=== PATIENT | female | born 1990 | race Caucasian/White ===

== ENCOUNTER → 2023-08-14 | Outpatient (CLI) | payer MEDICAID, SELFPAY ==
--- OUTSIDE RECORDS SUMMARY | 2023-08-14 16:31 | XMS RPT_ITS | CCD ---
Author Name Unknown Address [address] [place] [address] Organization [facility] Care Team Providers Care Flexo Press Operator Name Role Phone Irvin Hussein Primary Care Provider Blanca Cerna Admitting Unavailable [place] Attending Unavailable Bl[place] Cerna Primary Care Provider [place] Primary Care Provider [phone] [place] TIRADO Primary Care Provider [place] TIRADO Primary Care Provider HINESTONBLANCA Primary Care Unavailable JACLYN CUMMINGS Referring Unavail able JACLYN CUMMINGS Admitting Unavail able JACLYN CUMMINGS Admitting Unavail able JACLYN CUMMINGS Attending Unavail able BLANCA CERNA Primary Care Unavailable [place] TIRADO Primary Care Provider Mars Lane Unavailable Unavailable Unavailable No, Physician Primary Care Provider Unavailabl e Required, No Pcp Unavailable Unavailable Peter Pritchard Unavailable Unavailable Mars Lane R Unavailable None, No PCP Unavailable Unavailable Mars Lane Attending Unavailable Mars Lane Primary Care Unavailable Dr. Trisha Pruett Admitting Unav ailable Flynn, Dr. Trisha Cook Attending Unav ailable Mars Lane Referring Unavailable Mars Lane Primary Care Unavailable Dr. Trisha Pruett Admitting Unav ailable Flynn, Dr. Trisha Cook Attending Unav ailMars Walker Referring Unavailable Mars Lane Primary Care Unavailable Mars Lane Primary Care Unavailable Mars Lane Attending Unavailable Mars Lane Referring Unavailable Mars Lane Attending Unavailable Mars Lane Referring Unavailable DANNA SOLIS Admitting Unavailable DANNA SOLIS Attending Unavailable DANNA SOLIS Referring Unavailable Mars Lane Primary Care Unavailable Mars Lane Attending Unavailable NO, PHYSICIAN Primary Care Unavailable PATTIE CAZARES Attending Unavailable PATTIE CAZARES Attending Unavailable NO, PHYSICIAN Primary Care Unavailable PATTIE CAZARES Attending Unavailable NO, PHYSICIAN Primary Care Unavailable NO, PHYSICIAN Primary Care Unavailable MOSES ALMONTE Attending Unava ilable Allergies Allergy Classification Reported Allergen(s) Allergy Type Date of Onset Reaction(s) Facility Penicillins (antibiotic) (9 sources) Penicillins; Translations: [PENICILLINS] Drug Allergy 8 Other (See Comments) [facility] (9 sources) Penicillins; Translations: [PENICILLINS] Propensity to adverse reactions to drug 8 Other (See Comments) [facility] (20 sources) Other; Translations: [OTHER] Propensity to adverse reactions 8 [facility] (8 sources) Penicillins; Translations: [Penicillins] Allergy to drug (finding) Unknown [facility] [address] [employer] Work Phone: (2 sources) Penicillins Propensity to adverse reactions to drug 8 Other (See Comments) [facility] (2 sources) Penicillins Propensity to adverse reactions to drug 8 Other (See Comments) [facility] Medications Current Medications Medication Drug Class(es) Dates Sig (Normalized) Sig (Original) doxycycline hyclate 100 mg oral tablet (6 sources) Tetracycline-cla ss Drug Start: 08-19-2022 End: 08-28-2022 take 1 tablet by mouth twice daily doxycycline hyclate 100 mg oral tablet ; 1 tab(s) orally 2 times a day Quantity: 20 Refills: 0 Ordered: 19-Aug-2022 Peter Pritchard Start: 19-Aug-2022 End: 28-Aug-2022 Generic Substitution Allowed Comments: Avoid prolonged or excessive exposure to direct and/or artificial sunlight while taking this medication.Do not take this drug if you are .Finish all this medication unless otherwise directed by prescriber.Medicati on should be taken with plenty of water. Completed/Discontinued Medications Medication Drug Class(es) Dates Sig (Normalized) Sig (Original) acyclovir 400 mg oral tablet (12 sources) Herpesvirus Nucleoside Analog DNA Polymerase Inhibitor, Herpes Simplex Virus Nucleoside Analog DNA Polymerase Inhibitor, Herpes Zoster Virus Nucleoside Analog DNA Polymerase Inhibitor Start: 06-23-2018 End: 05-21-2020 take 1 tablet by mouth twice daily acyclovir (ZOVIRAX) 400 MG tablet Take 400 mg by mouth 2 (two) times a day . 0 06/23/2018 05/21/2020 Discontinued fluticasone propionate 0.05 mg/actuat metered dose nasal spray (3 sources) Corticosteroid Start: 08-17-2018 End: 08-17-2019 take 2 spray(s) nasal route once daily Levora 0.15/30 (28) 0.15-30 MG-MCG Oral Tablet (6 sources) take 1 tablet by mouth once daily Levora 0.15/30 (28) 0.15-30 MG-MCG Oral Tablet take 1 tablet by mouth once daily Quantity: 1 Refills: 12 Ordered: 26-Aug-[address] MD Active Problems Active Problems Problem Classification Problem Date Documented Da te Episodic/Chronic Cancer of cervix (12 sources) Atypical squamous cells of undetermined significance on cervical Papanicolaou smear; Translations: [Papanicolaou smear of cervix with atypical squamous cells of undetermined significance (ASC-US)] Onset: 03-11-2022 Episodic Open wounds of extremities (2 sources) Laceration without foreign body of right hand, initial encounter; Translations: [Laceration without foreign body of right hand, initial encounter] Onset: 06-04-2023 Episodic Other aftercare (1 source) Surgical follow-up; Translations: [Encounter for follow-up examination after completed treatment for conditions other than malignant neoplasm] Episodic Other connective tissue disease (1 source) Pain of bilateral hands; Translations: [Pain in right hand] Episodic Other connective tissue disease (2 sources) Acquired trigger finger; Translations: [Trigger finger, unspecified finger] Episodic Other connective tissue disease (1 source) Snapping thumb syndrome; Translations: [Trigger thumb, unspecified thumb] Episodic Other connective tissue disease (1 source) Trigger thumb of right hand; Translations: [Trigger thumb, right thumb] 03-18-2023 Episodic Other connective tissue disease (2 sources) Pain in unspecified hand; Translations: [Pain in unspecified hand] Onset: 06-04-2023 Episodic Other lower respiratory disease (2 sources) Cough 08-19-2022 Episodic Past or Other Problems Problem Classification Problem Date Documented Date Episodic/Chronic Administrative/social admission (1 source) Other specified counseling; Translations: [Other specified counseling] Onset: 05-06-2022 Episodic Allergic reactions (20 sources) Environmental allergy; Translations: [Other allergy status, other than to drugs and biological substances] Onset: 07-27-1998 08-17-2018 Episodic Conditions associated with dizziness or vertigo (20 sources) Dizziness and giddiness; Translations: [Dizziness of unknown cause] Onset: 08-17-2018 Resolved: 05-21-2020 08-17-2018 Episodic Other connective tissue disease (3 sources) Triggering of digit; Translations: [Trigger finger, left middle finger] Onset: 08-05-2022 Episodic Other connective tissue disease (1 source) Trigger finger, left middle finger; Translations: [Trigger finger, left middle finger] Onset: 08-05-2022 Episodic Other connective tissue disease (2 sources) Trigger thumb, unspecified thumb; Translations: [Trigger thumb, unspecified thumb] Onset: 08-05-2022 Episodic Other female genital disorders (3 sources) Moderate cervical dysplasia; Translations: [Moderate cervical dysplasia] Onset: 06-09-2022 Episodic Other female genital disorders (1 source) Dysplasia of cervix uteri, unspecified; Translations: [Dysplasia of cervix uteri, unspecified] Onset: 06-09-2022 Episodic Other nervous system disorders (16 sources) Numbness of hand; Translations: [Anesthesia of skin] Onset: 05-21-2020 05-21-2020 Episodic Other non-traumatic joint disorders (11 sources) Bilateral wrist pain; Translations: [Pain in right wrist] Onset: 05-21-2020 05-21-2020 Episodic Other nutritional; endocrine; and metabolic disorders (9 sources) Body mass index 25-29 - overweight; Translations: [Body mass index (BMI) 28.0-28.9, adult] Onset: 08-17-2018 08-17-2018 Episodic Other nutritional; endocrine; and metabolic disorders (2 sources) Overweight in adulthood with body mass index of 25 or more but less than 30; Translations: [Body mass index (BMI) 28.0-28.9, adult] Onset: 08-17-2018 08-17-2018 Episodic Other upper respiratory infections (18 sources) Acute maxillary sinusitis; Translations: [Acute frontal sinusitis] Onset: 09-03-2018 Resolved: 05-21-2020 09-03-2018 Episodic Otitis media and related conditions (14 sources) Acute serous otitis media, bilateral; Translations: [Acute serous otitis media of bilateral ears] Onset: 08-17-2018 Resolved: 05-21-2020 08-17-2018 Episodic Otitis media and related conditions (5 sources) Acute serous otitis media of bilateral ears; Translations: [Bilateral acute serous otitis media] Onset: 08-17-2018 Resolved: 05-21-2020 08-17-2018 Unclassified (6 sources) Finding of menstrual bleeding; Translations: [Menstruation] Results Test Name Value Interpretation Reference Range Facil ity Vital Signs Date Time Vital Sign Value Performing Clinician Facility 03-25-2023 17:45-0400 Body height 152.4 cm No Pcp Required [facility] 03-25-2023 17:45-0400 Body temperature 100.22 [degF] No Pcp Required [facility] 03-25-2023 17:45-0400 Diastolic blood pressure 84 mm[Hg] No Pcp Required [facility] 03-25-2023 17:45-0400 Heart rate 111 /min No Pcp Required [facility] 03-25-2023 17:45-0400 Respiratory rate 16 /min No Pcp Required [facility] 03-25-2023 17:45-0400 SaO2% (BldA) [Mass fraction] 97 % No Pcp Required [facility] 03-25-2023 17:45-0400 Systolic blood pressure 125 mm[Hg] No Pcp Required [facility] 08-26-2022 08:31-0500 Body height 149.86 cm No PCP None [employer] Work Phone: 08-26-2022 08:31-0500 Body mass index (BMI) [Ratio] 27.96 kg/m2 No PCP None [employer] Work Phone: 08-26-2022 08:31-0500 Body surface area Derived from formula 1.58 m2 No PCP None [employer] Work Phone: 08-26-2022 08:31-0500 Body weight 62.8 kg No PCP None [facility] Taisha Ackley Work Phone: 08-26-2022 08:31-0500 Diastolic blood pressure 64 mm[Hg] No PCP None [facility] Taisha Ackley Work Phone: 08-26-2022 08:31-0500 Systolic blood pressure 118 mm[Hg] No PCP None [facility] Taisha Ackley Work Phone: 08-19-2022 12:07-0500 Body height 152 cm No Pcp Required [facility] 08-19-2022 12:07-0500 Body temperature 98.24 [degF] No Pcp Required [facility] 08-19-2022 12:07-0500 Diastolic blood pressure 101 mm[Hg] No Pcp Required [facility] 08-19-2022 12:07-0500 Heart rate 93 /min No Pcp Required [facility] 08-19-2022 12:07-0500 SaO2% (BldA) [Mass fraction] 97 % No Pcp Required [facility] 08-19-2022 12:07-0500 Systolic blood pressure 135 mm[Hg] No Pcp Required [facility] 09-06-2021 08:54-0500 Body height [address] Work Phone: [place] [id number] [employer] Work Phone: 09-06-2021 08:54-0500 Body mass index (BMI) [Ratio] 27.3 kg/m2 [address] Work Phone: [place] [id number] [employer] Work Phone: 09-06-2021 08:54-0500 Body surface area Derived from formula 1.[address] Work Phone: [place] [id number] [employer] Work Phone: 09-06-2021 08:54-0500 Body temperature 97.7 [degF] [address] Work Phone: [place] [id number] [employer] Work Phone: 09-06-2021 08:54-0500 Body weight 61.[address] Work Phone: [place] [id number] [employer] Work Phone: 09-06-2021 08:54-0500 Diastolic blood pressure 68 mm[Hg] [address] Work Phone: [place] [id number] [employer] Work Phone: 09-06-2021 08:54-0500 Systolic blood pressure 122 mm[Hg] Mars [address] Work Phone: [place] [id number] [employer] Work Phone: 08-23-2021 08:43-0500 Body height [address] Work Phone: [place] [id number] [employer] Work Phone: 08-23-2021 08:43-0500 Body mass index (BMI) [Ratio] 27.43 kg/m2 [address] Work Phone: [place] [id number] [employer] Work Phone: 08-23-2021 08:43-0500 Body surface area Derived from formula 1.[address] Work Phone: [place] [address] [employer] Work Phone: 08-23-2021 08:43-0500 Body temperature 97.3 [degF] [address] Work Phone: [place] [id number] [employer] Work Phone: 08-23-2021 08:43-0500 Body weight [address] Work Phone: [place] [address] [employer] Work Phone: 08-23-2021 08:43-0500 Diastolic blood pressure 64 mm[Hg] [address] Work Phone: [employer] Work Phone: 08-23-2021 08:43-0500 Systolic blood pressure 112 mm[Hg] [address] Work Phone: [employer] Work Phone: 06-06-2020 07:57-0500 BMI (Body Mass Index) 27.27 kg/m2 [facility] 06-06-2020 07:57-0500 Body weight 61.24 kg Jaclyn [facility] 06-06-2020 07:57-0500 Height 149.9 cm [facility] 05-21-2020 08:24-0400 BMI (Body Mass Index) 27.29 kg/m2 [facility] 05-21-2020 08:24-0400 Body Temperature 99.39 [degF] [facility] 05-21-2020 08:24-0400 Body weight 61.28 kg [facility] 05-21-2020 08:24-0400 BP Diastolic 79 mm[Hg] [facility] 05-21-2020 08:24-0400 BP Systolic 120 mm[Hg] [facility] 05-21-2020 08:24-0400 Height 149.9 cm [facility] 05-21-2020 08:24-0400 Pulse (Heart Rate) 83 /min [facility] 05-21-2020 08:24-0400 Pulse Oximetry 99 % [facility] 05-21-2020 08:24-0400 Respiratory Rate 16 /min [facility] 09-27-2019 15:43-0500 BMI (Body Mass Index) 26.86 kg/m2 [facility] 09-27-2019 15:43-0500 Body Temperature 98.29 [degF] [facility] 09-27-2019 15:43-0500 Body weight 60.33 kg [facility] 09-27-2019 15:43-0500 BP Diastolic 72 mm[Hg] [facility] 09-27-2019 15:43-0500 BP Systolic 122 mm[Hg] [facility] 09-27-2019 15:43-0500 Height 149.9 cm [facility] 09-27-2019 15:43-0500 Pulse (Heart Rate) 92 /min [facility] 09-27-2019 15:43-0500 Pulse Oximetry 98 % [facility] 09-27-2019 15:43-0500 Respiratory Rate 18 /min [facility] 09-03-2018 09:02-0500 BMI (Body Mass Index) 29.12 kg/m2 [facility] 09-03-2018 09:02-0500 Body Temperature 98.1 [degF] [facility] 09-03-2018 09:02-0500 Body weight 65.41 kg [facility] 09-03-2018 09:02-0500 BP Diastolic 81 mm[Hg] [facility] 09-03-2018 09:02-0500 BP Systolic 119 mm[Hg] [facility] 09-03-2018 09:02-0500 Height 149.9 cm [facility] 09-03-2018 09:02-0500 Pulse (Heart Rate) 79 /min [facility] 09-03-2018 09:02-0500 Pulse Oximetry 98 % [facility] 09-03-2018 09:02-0500 Respiratory Rate 16 /min [facility] 08-17-2018 09:03-0500 BMI (Body Mass Index) 28.28 kg/m2 [facility] 08-17-2018 09:03-0500 Body Temperature 98.1 [degF] [facility] 08-17-2018 09:03-0500 BP Diastolic 72 mm[Hg] [facility] 08-17-2018 09:03-0500 BP Systolic 113 mm[Hg] [facility] 08-17-2018 09:03-0500 Height 149.9 cm [facility] 08-17-2018 09:03-0500 Pulse (Heart Rate) 74 /min [facility] 08-17-2018 09:03-0500 Pulse Oximetry 98 % [facility] 08-17-2018 09:03-0500 Respiratory Rate 18 /min [facility] 08-17-2018 09:03-0500 Weight 63.5 kg [facility] Encounters Encounter Date Encounter Type Care Provider Facility Start: 06-04-2023 End: 06-04-2023 Emergency department patient visit PHYSICIAN NO [facility] Start: 03-25-2023 End: 03-25-2023 Emergency department patient visit Peter Pritchard [facility] Start: 03-18-2023 End: 03-18-2023 ambulatory PHYSICIAN NO [facility] Start: 03-18-2023 End: 03-18-2023 Office outpatient visit 15 minutes Pattie Cazares SCRUBBER SYSTEM ATTENDANT [facility] Procedures Date Procedure Procedure Detail Performing Clinician Start: 03-18-2023 Injection 1 tendon sheath/ligament aponeurosis Pattiekamilla Sernafer SCRUBBER SYSTEM ATTENDANT Work Phone: Start: 03-18-2023 Injection 1 tendon sheath/ligament aponeurosis Pattie Marnie Paris SCRUBBER SYSTEM ATTENDANT Work Phone: Start: 08-05-2021 Injection 1 tendon sheath/ligament aponeurosis Pattie Marnie Sernafer SCRUBBER SYSTEM ATTENDANT Work Phone: Start: 08-05-2021 Injection therapeuti c carpal tunnel Pattie Marnie Sernafer SCRUBBER SYSTEM ATTENDANT Work Phone: Start: 06-06-2020 Injection therapeuti c carpal tunnel Jaclyn Cummings Work Phone: Start: 09-27-2019 Adult depression scr eening assessment Blanca [place] Start: 08-24-2018 Complete blood count with white cell differential, manual Blanca Cerna Work Phone: Start: 08-24-2018 Comprehensive metabo lic 2000 panel - Serum or Plasma Blanca Cerna Work Phone: Start: 08-24-2018 Lipid 1996 panel - S ambrose or Plasma Blanca [place] Work Phone: Start: 08-24-2018 Thyrotropin [Units/v olume] in Serum or Plasma by Detection limit <= 0.005 mIU/L Blanca Cerna Work Phone: Start: 08-13-2018 Microscopic observat ion [Identifier] in Cervix by Cyto stain [facility] Cold knife cone biop sy of cervix No PCP None Plan of Treatment Date Care Activity Detail Author Start: 07-27-2024 [facility] Start: 08-31-2023 Patient encounter procedure [facility] Start: 08-26-2023 History and physical examination, annual for health maintenance Wellness Visit [facility] Start: 03-27-2023 Influenza vaccination Sequenti al Influenza Vaccine (#1) [facility] Start: 08-26-2022 Patient encounter procedure [facility] Start: 08-23-2022 History and physical examination, annual for health maintenance Wellness Visit [facility] Start: 03-27-2022 Influenza vaccination Sequenti al Influenza Vaccine (#1) [facility] Start: 03-07-2022 PAPREPEAT, Provider: Mars Lane, Status: Pen, Time: 8:30 AM PAPREPEAT, Provider: Mars Lane, Status: Pen, Time: 8:30 AM [employer] Work Phone: Start: 08-23-2021 Patient encounter procedure ANNUAL, Provider: Mars Lane, Status: Pen, Time: 8:30 AM [employer] Work Phone: Start: 08-13-2021 Screening for malign ant neoplasm of cervix PAP SMEAR [facility] Start: 03-27-2021 Influenza vaccination Sequenti al Influenza Vaccine (#1) [facility] Start: 02-27-2021 End: 02-27-2021 Follow-up encounter 02/27/2021 Follow-Up Sports Medicine Jaclyn Cummings MD [address] [facility] [address] [place] [address] [phone] [facility] Start: 02-19-2021 End: 02-19-2021 Admission to same day surgery center 02/19/2021 Surgery Jaclyn Cummings MD [address] [place], [place] [id number] RELEASE CARPAL TUNNEL - RIGHT [facility] Periop Immunizations Immunization Date Immunization Notes Care Provider Fa cili 05-21-2020 influenza, injectabl e, quadrivalent, preservative free [facility] 05-21-2020 flu vacc [id number] 6 mos up,PF, sdv (FLUZONE QUAD) injection [facility] 08-17-2018 influenza, injectabl e, quadrivalent, contains preservative [facility] 08-17-2018 influenza, injectabl e, quadrivalent, preservative free [facility] 08-17-2018 flu vaccine qv 2018, 36mos up,,PF, sdv (FLUZONE QUAD) injection [facility] 11-25-2014 diphtheria, tetanus toxoids and acellular pertussis vaccine [facility] 11-25-2014 measles, mumps and r ubella virus vaccine [facility] Payers Date Payer Category Payer Worker's Compensation [id number] 2016 Medicaid [employer] xxxxxxxxxxx 2016-Present xxxxxxxxxxx [id number] 2016 Medicaid [employer] [id number] 2016-Present [id number] 2016 Medicaid [id number] 2016 Medicaid [id number] 2016 Unknown [id number] 1989 Unknown [id number] [id number]. 900 1989 Unknown [id number] [id number]. 903 1989 Unknown [id number] [id number]. 356 1989 Unknown [id number] [id number]. 356 1989 Unknown [id number] [id number]. 356 1989 Unknown [id number] [id number]. 356 1989 Unknown [id number] [id number]. 356 1989 Unknown [id number] [id number]. 356 1989 Unknown [id number] [id number]. 356 1989 Unknown [id number] [id number]. 903 1989 Unknown [id number] [id number]. 903 1989 Unknown [id number]. 903 1989 Unknown [id number]. 902 Unknown Social History Date Type Detail Facility Start: 06-03-2018 End: 08-17-2018 Tobacco smoking status SCIS Never smoker [facility] Start: 06-03-2018 Alcohol Comment mixed drinks/very rarely 3/4 yr [facility] Start: 1990 Sex Assigned At Not on file [facility] Start: 09-28-2019 End: 03-18-2023 Alcohol intake Current drinker of alcohol (finding) [facility] Start: 09-27-2019 End: 06-06-2020 History SDOH Social Connections Get Together 2 [facility] Start: 09-27-2019 End: 06-06-2020 [facility] SD[facility] Start: 07-26-2022 End: 08-05-2022 Exposure to SARS-CoV-2 (event) Not sure [facility] Start: 08-17-2018 End: 05-24-2020 Tobacco use and exposure Never used [facility] Start: 06-03-2018 Alcohol Comment mixed drinks/very rarely 3/4 yr [facility] Start: 09-27-2019 End: 06-06-2020 Never a smoker Never a smoker [facility] Tobacco smoking consumption unknown [facility] Start: 09-27-2019 End: 06-06-2020 Social connection and isolation panel [facility] Frequency of Communication with Friends and Family Not on file [facility] (I/We) worried wheth er (my/our) food would run out before (I/we) got money to buy more. Never true [facility] Start: 08-17-2018 Gender identity Identifies as female gender (finding) [facility] Start: 08-17-2018 Sexual orientation Heterosexual (finding) [facility] Clinical Notes 12-18-2020 to 03-18-2023 Pattie Cazares CNP - 03/18/2023 3:14 PM Pattie Quiros CNP - 03/18/2023 3:13 PM Pattie Quiros CNP - 03/18/2023 3:12 PM EDTTneris Cazares CNP - 08/05/2022 2:15 PM EST Note Date & Type Note Facility 03-18-2023 History of Present illness Narrative Associated Order(s): Tendon Sheath Injection Post-Procedure Diagnose(s): Trigger finger, left middle finger Tendon Sheath Injection Performed by: Pattie Cazares CNP Authorized by: Pattie Cazares CNP Consent given by: Patient Time out: Immediately prior to the procedure a time out was called Timeout performed at: 03/18/2023 3:14 PM Physician or proceduralist has discussed critical or nonroutine steps, procedure duration and anticipated blood loss: Yes Indications: Pain Location: Long finger Laterality: Left Prep: patient was prepped and draped in usual sterile fashion Needle size: 22 G Approach: Volar Medications: 40 mg triamcinolone acetonide 40 mg/mL Anesthetic used: Ethyl Chloride Patient tolerance: Patient tolerated the procedure well with no immediate complications Associated Order(s): Tendon Sheath Injection Post-Procedure Diagnose(s): Trigger finger of right thumb Tendon Sheath Injection Performed by: Pattie Cazares CNP Authorized by: Pattie Cazares CNP Consent given by: Patient Time out: Immediately prior to the procedure a time out was called Timeout performed at: 03/18/2023 3:13 PM Physician or proceduralist has discussed critical or nonroutine steps, procedure duration and anticipated blood loss: Yes Indications: Pain Location: Thumb Laterality: Right Prep: patient was prepped and draped in usual sterile fashion Needle size: 22 G Approach: Volar Medications: 40 mg triamcinolone acetonide 40 mg/mL Anesthetic used: Ethyl Chloride Patient tolerance: Patient tolerated the procedure well with no immediate complications Patient is a 32 year old here today for trigger finger injections of the left middle finger and the right thumb. Last injections were given by me on 08/05/2022 and lasted up until about a month ago. Lump and popping felt at both A1 pulleys. Injections given without difficulty and she tolerated them well. I will see her back as needed. She understands and agrees to proceed. documented in this encounter [facility] 08-26-2022 Note 4 Date of Procedure: 08/26/2022 Pathologist: [facility], Cytology Date Reported: 09/08/2022 Date Received: 08/26/2022 Submitting Physician: MARS LANE MD Attending Physician: MARS LANE MD FINAL CYTOLOGICAL INTERPRETATION A. THINPREP PAP CERVICAL: Specimen adequacy: SATISFACTORY FOR EVALUATION. Quality Indicator: Endocervical/transformation zone component is present. General Categorization: NEGATIVE FOR INTRAEPITHELIAL LESION OR MALIGNANCY. Descriptive Interpretation: SHIFT IN VAGINAL KAILASH SUGGESTIVE OF BACTERIAL VAGINOSIS. HIGH RISK HPV TEST RESULT: HPV GENOTYPE 16 NEGATIVE HPV GENOTYPE 18 NEGATIVE HPV GENOTYPE OTHER NEGATIVE Reference Range: Negative Slide(s) initially screened by a Counseling Director at [facility], [address] [place] [id number] QC review performed at [facility] [place], [address] [place] [id number] Testing for high-risk (HR) type of human papilloma virus (HPV) is performed by the Delores angelito HPV Test. The angelito HPV Test is a qualitative polymerase chain reaction that amplifies DNA of HPV16, HPV18 and 12 other high-risk HPV types (31, 33, 35, 39, 45, 51, 52, 56, 58, 59, 66, and 68) associated with cervical cancer and its precursor lesions. A positive result indicates the presence of HPV DNA due to one or more of the 14 genotypes: 16, 18, 31, 33, 35, 39, 45, 51, 52, 56, 58, 59, 66, and 68. Negative results indicate HPV DNA concentrations are undetectable or below the pre-set threshold for detection. False negative results may be associated with unoptimized sampling. A negative HR HPV result does not exclude the possibility of future cytologic HSIL or underlying CIN2-3 or cancer. This test is approved for cervical specimens by the US Food and Drug Administration. Results of this test should be interpreted in conjunction with the patient?s Pap test results. Please refer to ASCCP current guidelines for the use of HPV DNA testing, result interpretation, and patient management. The performance of this test was verified by the Molecular Diagnostic Laboratory at [facility]. The lab is certified under the Clinical Laboratory Amendments of 1988 (CLIA 88) as qualified to perform high complexity clinical laboratory testing. This specimen has been analyzed by the RealPagePrep Imaging System ([employer] an automated imaging and review system, which assists the laboratory in evaluating cells on ThinPrep Pap tests. Following automated imaging, selected anna from every slide were reviewed by a lime puller and/or pathologist. Electronically Signed Out By [facility], Cytology//LEDA/JMRonn By the signature on this report, the individual or group listed as making the Final Interpretation/Diagnosis certifies that they have reviewed this case. Diagnostic interpretation performed at [facility] [address] [place] [address] Educational Note: Cervical cytology is a screening procedure primarily for squamous cancers and precursors and has associated false-negative and false-positive results as evidenced by published data. Your patient?s test should be interpreted in this context, together with patient?s history and clinical findings. Regular sampling and follow-up of unexplained clinical signs and symptoms are recommended to minimize false negative results. Clinical History Date of Last Menstrual Period: 08/19/2022 Other Clinical Conditions: COTEST HPV(Genotype) except for ASC-H, HSIL, Carcinoma - Include HPV Genotype testing Annual Clinical Diagnosis History: Encounter for Papanicolaou smear of cervix - (Z12.4); Women's annual routine gynecological examination - (Z01.419) Source of Specimen A: THINPREP PAP CERVICAL [facility] Department of Pathology [id number] [place] [address] [facility] Bilateral carpal tunnel syndrome- Primary Carpal tunnel syndrome Surgery, elective- Primary Unspecified elective surgery for purposes other than remedying health states Bilateral carpal tunnel syndrome Carpal tunnel syndrome [facility] Diagnosis Surgery follow-up- Primary [facility] Diagnosis Carpal tunnel syndrome of left wrist- Primary Trigger finger, acquired Trigger finger (acquired) [facility] Diagnosis Trigger finger, left middle finger- Primary Acquired trigger thumb [facility] Diagnosis Trigger finger of right thumb- Primary Trigger finger, left middle finger [facility] NarrativePresents for annual exam. She voices no complaints and is doing well. Denies any bowel or bladder problems. Denies any breast problems. She is doing well on the control pills. [employer] Work Phone: History of Present illness NarrativePatient presents for colposcopy due to Pap smear showing ASCUS with positive high-risk HPV. She voices no complaints and is doing well.[employer] Work Phone: History of Present illness NarrativePresents for annual exam. She voices no complaints and is doing well. Denies any bowel or bladder problems. Denies any breast problems. She is doing well with the control pills.[employer] Work Phone: Instructions * Patient Instructions* Blanca Cerna CNP - 08/17/2018 9:43 AM EST Problem List Items Addressed This Visit Nervous and Auditory Bilateral acute serous otitis media You have fluid behind both ear drums which can cause dizziness. Use Flonase 2 sprays in each nostril daily every single day to see if this helps with sinus pressure and to open up your eustachian tubes. Use a heating pad on your ears to help with ear pressure. Relevant Medications fluticasone (FLONASE) 50 mcg/actuation nasal spray Other Environmental allergies Using a Neti Pot daily can help eliminate a lot of allergy symptoms and congestion. Relevant Medications fluticasone (FLONASE) 50 mcg/actuation nasal spray Dizziness of unknown cause - Primary Will do labs to see if we can identify a reason for the dizziness. Will have yous use Flonase to help with sinus congestion and fluid behind your ear drums. If this does not help I will order a sleepstudy due to not waking up rested and unsure what sleep study was for in high school. You are more under the impression you are not waking up rested due to your husbands sleep habits. The lab is open here at the office M-F 730am-4pm, you do not need an appointment, just walk in. I would like you to obtain some fasting blood work. This means that you can not have anything to eat or drink for about 10 hours before your blood is drawn. The only thing you are allowed to have before your labs is a glass of water or a cup of BLACK coffee. Thank you. Relevant Medications fluticasone (FLONASE) 50 mcg/actuation nasal spray Other Relevant Orders CBC and Differential Lipid Panel Comprehensive Metabolic Panel TSH with Reflex Free T4 BMI 28.0-28.9,adult Eat meat, vegetables, nuts and seeds, some fruit, very little starch and absolutely no sugar. If you can grow it or kill it, then that's what you should be eating..... Chicken, turkey, fish pork, beef, ALL vegetables and fruit. If it is processed or you can not pronounce the ingredients, do not eat it! Shop the outside perimeter of the grocery store. Listen to your body, if you are hungry all the time you may need to increase your intake of healthyveggies and small healthy snacks. Eat whole, healthy foods and you won't need to count calories. Increase your activity level; the more you move your body the healthier you will be and the better you will feel! Diet and Exercise is not a fad, it really works! Other Visit Diagnoses Influenza vaccine needed Relevant Medications flu vaccine qv 2018, 36mos up,,PF, sdv (FLUZONE QUAD) injection Other Relevant Orders Influenza IIV4 3yo or >,Fluzone Quad (Completed) Dizziness: Care Instructions Your Care Instructions Dizziness is the feeling of unsteadiness or fuzziness in your head. It is different than having vertigo, which is a feeling that the room is spinning or that you are moving or falling. It is also different from lightheadedness, which is the feeling that you are about to faint. It can be hard to know what causes dizziness. Some people feel dizzy when they have migraine headaches. Sometimes bouts of flu can make you feel dizzy. Some medical conditions, such as heart problemsor high blood pressure, can make you feel dizzy. Many medicines can cause dizziness, including medicines for high blood pressure, pain, or anxiety. If a medicine causes your symptoms, your doctor may recommend that you stop or change the medicine.If it is a problem with your heart, you may need medicine to help your heart work better. If there is no clear reason for your symptoms, your doctor may suggest watching and waiting for a while to see if the dizziness goes away on its own. Follow-up care is a tamayo part of your treatment and safety. Be sure to make and go to all appointments, and call your doctor if you are having problems. It's also a good idea to know your test resultsand keep a list of the medicines you take. How can you care for yourself at home? If your doctor recommends or prescribes medicine, take it exactly as directed. Call your doctor if you think you are having a problem with your medicine. Do not drive while you feel dizzy. Try to prevent falls. Steps you can take include: ? Using nonskid mats, adding grab bars near the tub, and using night-lights. ? Clearing your home so that walkways are free of anything you might trip on. ? Letting family and friends know that you have been feeling dizzy. This will help them know how tohelp you. When should you call for help? Call 911 anytime you think you may need emergency care. For example, call if: You passed out (lost consciousness). You have dizziness along with symptoms of a heart attack. These may include: ? Chest pain or pressure, or a strange feeling in the chest. ? Sweating. ? Shortness of breath. ? Nausea or vomiting. ? Pain, pressure, or a strange feeling in the back, neck, jaw, or upper belly or in one or both shoulders or arms. ? Lightheadedness or sudden weakness. ? A fast or irregular heartbeat. You have symptoms of a stroke. These may include: ? Sudden numbness, tingling, weakness, or loss of movement in your face, arm, or leg, especially ononly one side of your body. ? Sudden vision changes. ? Sudden trouble speaking. ? Sudden confusion or trouble understanding simple statements. ? Sudden problems with walking or balance. ? A sudden, severe headache that is different from past headaches. Call your doctor now or seek immediate medical care if: You feel dizzy and have a fever, headache, or ringing in your ears. You have new or increased nausea and vomiting. Your dizziness does not go away or comes back. Watch closely for changes in your health, and be sure to contact your doctor if: You do not get better as expected. Where can you learn more? Log into your personal health record on https://CoaLogix.Invia.cz and enter Q823 in the Education box to learn more about Dizziness: Care Instructions. Current as of: April 18, 2018 Content Version: 11.9 0187-8709 [employer]. Care instructions adapted under license by your healthcare professional. If you have questions about a medical condition or this instruction, always ask your healthcare professional. [employer] disclaims any warranty or liability for your use of this information. Nikki Maneuver at Home for Vertigo: Exercises Your Care Instructions Vertigo is a spinning or whirling sensation when you move your head. Your doctor may have moved you in different positions to help your vertigo get better faster. This is called the Nikki maneuver. Your doctor also may have asked you to do these exercises at home. Do the exercises as often as your doctor recommends. If your vertigo is getting worse, your doctor may have you change the exercise or stop it. Step 1 Step 1 1. Sit on the edge of a bed or sofa. Step 2 1. Turn your head 45 degrees in the direction your doctor told you to. This should be toward the ear that causes the most vertigo for you. In this picture, the woman is turning toward her left ear. Step 3 1. Tilt yourself backward until you are lying on your back. Your head should still be at a 45-degree turn. Your head should be about midway between looking straight ahead and looking out to your side. Hold for 30 seconds. If you have vertigo, stay in this position until it stops. Step 4 1. Turn your head 90 degrees toward the ear that has the least vertigo. In this picture, the woman is turning to the right because she has vertigo on her left side. The point of your chin should be raised and over your shoulder. Hold for 30 seconds. Step 5 1. Roll onto the side with the least vertigo. You should now be looking at the floor. Hold for 30 seconds. Follow-up care is a tamayo part of your treatment and safety. Be sure to make and go to all appointments, and call your doctor if you are having problems. It's also a good idea to know your test resultsand keep a list of the medicines you take. Where can you learn more? Log into your personal health record on https://[employer]ix.Invia.cz and enter P834 in the Education box to learn more about Nikki Maneuver at Home for Vertigo: Exercises. Current as of: December 27, 2017 Content Version: .[id number] [employer]. Care instructions adapted under license by your healthcare professional. If you have questions about a medical condition or this instruction, always ask your healthcare professional. [employer] disclaims any warranty or liability for your use of this information. Saline Nasal Washes: Care Instructions Your Care Instructions Saline nasal washes help keep the nasal passages open by washing out thick or dried mucus. This simple remedy can help relieve symptoms of allergies, sinusitis, and colds. It also can make the nose feel more comfortable by keeping the mucous membranes moist. You may notice a little burning sensation in your nose the first few times you use the solution, but this usually gets better in a few days. Follow-up care is a tamayo part of your treatment and safety. Be sure to make and go to all appointments, and call your doctor if you are having problems. It's also a good idea to know your test resultsand keep a list of the medicines you take. How can you care for yourself at home? You can buy premixed saline solution in a squeeze bottle or other sinus rinse products at a drugstore. Read and follow the instructions on the label. You also can make your own saline solution by adding 1 teaspoon of salt and 1 teaspoon of baking soda to 2 cups of distilled water. If you use a homemade solution, pour a small amount into a clean bowl. Using a rubber bulb syringe,squeeze the syringe and place the tip in the salt water. Pull a small amount of the salt water intothe syringe by relaxing your hand. Sit down with your head tilted slightly back. Do not lie down. Put the tip of the bulb syringe or the squeeze bottle a little way into one of your nostrils. Gently drip or squirt a few drops into thenostril. Repeat with the other nostril. Some sneezing and gagging are normal at first. Gently blow your nose. Wipe the syringe or bottle tip clean after each use. Repeat this 2 or 3 times a day. Use nasal washes gently if you have nosebleeds often. When should you call for help? Watch closely for changes in your health, and be sure to contact your doctor if: You often get nosebleeds. You have problems doing the nasal washes. Where can you learn more? Log into your personal health record on https://nanoMRt.Invia.cz and enter B784 in the Education box to learn more about Saline Nasal Washes: Care Instructions. Current as of: October 20, 2017 Content Version: 11.9 3508-0529 [employer]. Care instructions adapted under license by your healthcare professional. If you have questions about a medical condition or this instruction, always ask your healthcare professional. [employer] disclaims any warranty or liability for your use of this information. in this encounter* Patient Instructions* Blanca Cerna CNP - 09/27/2019 4:08 PM EST Problem List Items Addressed This Visit Respiratory Sinusitis, acute frontal Relevant Medications doxycycline hyclate (VIBRA-TABS) 100 MG tablet predniSONE (DELTASONE) 20 MG tablet Other Visit Diagnoses Right wrist pain - Primary Relevant Orders Ambulatory referral to Neurology If any referrals were placed at the time of your visit please allow 2 weeks for processing. If you haven't heard from anyone within 2 weeks please contact my office so we can look into the status of your referral. If you were given any labs today please ensure they are completed according to the directions given. Once labs are completed please allow 1-2 weeks for us to receive the results, review them, and letyou know what steps, if any, are needed next. If you haven't heard from us after that please call to inquire. If labs were ordered to be done PRIOR to your next visit we will discuss the results at the time ofyour office visit. If any procedures or imaging studies were ordered that must be prior authorized please give us 2 weeks to get them approved. Once approved someone should call you to schedule them or give you a date and time that they were scheduled for. If you haven't heard anything within 2 weeks of the office visit please call the office so we can look into their status. Customer Service/Billing Questions: [phone] [facility] Assistance: [phone] or [phone] Financial Assistance: [phone] or [phone] As of August 01, 2019 my schedule will be changing: Thursday 7 am to 5 pm Thursday 7 am to 5 pm Thursday closed 7 am to 5 pm Thursday 7 am to 1 pm Sinusitis: Care Instructions Your Care Instructions Sinusitis is an infection of the lining of the sinus cavities in your head. Sinusitis often followsa cold. It causes pain and pressure in your head and face. In most cases, sinusitis gets better on its own in 1 to 2 weeks. But some mild symptoms may last for several weeks. Sometimes antibiotics are needed. Follow-up care is a tamayo part of your treatment and safety. Be sure to make and go to all appointments, and call your doctor if you are having problems. It's also a good idea to know your test resultsand keep a list of the medicines you take. How can you care for yourself at home? Take an ufxf-enj-sdzcvwf pain medicine, such as acetaminophen (Tylenol), ibuprofen (Advil, Motrin),or naproxen (Aleve). Read and follow all instructions on the label. If the doctor prescribed antibiotics, take them as directed. Do not stop taking them just because you feel better. You need to take the full course of antibiotics. Be careful when taking mwoa-szf-lebldbb cold or flu medicines and Tylenol at the same time. Many ofthese medicines have acetaminophen, which is Tylenol. Read the labels to make sure that you are nottaking more than the recommended dose. Too much acetaminophen (Tylenol) can be harmful. Breathe warm, moist air from a steamy shower, a hot bath, or a sink filled with hot water. Avoid cold, dry air. Using a humidifier in your home may help. Follow the directions for cleaning the machine. Use saline (saltwater) nasal washes to help keep your nasal passages open and wash out mucus and bacteria. You can buy saline nose drops at a grocery store or drugstore. Or you can make your own at home by adding 1 teaspoon of salt and 1 teaspoon of baking soda to 2 cups of distilled water. If you make your own, fill a bulb syringe with the solution, insert the tip into your nostril, and squeeze gently. Blow your nose. Put a hot, wet towel or a warm gel pack on your face 3 or 4 times a day for 5 to 10 minutes each time. Try a decongestant nasal spray like oxymetazoline (Afrin). Do not use it for more than 3 days in a row. Using it for more than 3 days can make your congestion worse. When should you call for help? Call your doctor now or seek immediate medical care if: You have new or worse swelling or redness in your face or around your eyes. You have a new or higher fever. Watch closely for changes in your health, and be sure to contact your doctor if: You have new or worse facial pain. The mucus from your nose becomes thicker (like pus) or has new blood in it. You are not getting better as expected. Where can you learn more? Log into your personal health record on https://nanoMRt.Invia.cz and enter I933 in the Education box to learn more about Sinusitis: Care Instructions. Current as of: February 20, 2019 Content Version: 12.3 9985-8534 [employer]. Care instructions adapted under license by your healthcare professional. If you have questions about a medical condition or this instruction, always ask your healthcare professional. [employer] disclaims any warranty or liability for your use of this information. Carpal Tunnel Syndrome: Exercises Introduction Here are some examples of exercises for you to try. The exercises may be suggested for a condition or for rehabilitation. Start each exercise slowly. Ease off the exercises if you start to have pain. You will be told when to start these exercises and which ones will work best for you. Warm-up stretches When you no longer have pain or numbness, you can do exercises to help prevent carpal tunnel syndrome from coming back. Do not do any stretch or movement that is uncomfortable or painful. 1. Rotate your wrist up, down, and from side to side. Repeat 4 times. 2. Stretch your fingers far apart. Relax them, and then stretch them again. Repeat 4 times. 3. Stretch your thumb by pulling it back gently, holding it, and then releasing it. Repeat 4 times. How to do the exercises Prayer stretch 1. Start with your palms together in front of your chest just below your chin. 2. Slowly lower your hands toward your waistline, keeping your hands close to your stomach and yourpalms together until you feel a mild to moderate stretch under your forearms. 3. Hold for at least 15 to 30 seconds. Repeat 2 to 4 times. Wrist flexor stretch 1. Extend your arm in front of you with your palm up. 2. Bend your wrist, pointing your hand toward the floor. 3. With your other hand, gently bend your wrist farther until you feel a mild to moderate stretch in your forearm. 4. Hold for at least 15 to 30 seconds. Repeat 2 to 4 times. Wrist extensor stretch 1. Repeat steps 1 through 4 of the stretch above, but begin with your extended hand palm down. Follow-up care is a atmayo part of your treatment and safety. Be sure to make and go to all appointments, and call your doctor if you are having problems. It's also a good idea to know your test resultsand keep a list of the medicines you take. Where can you learn more? Log into your personal health record on https://[employer]aLogix.Invia.cz and enter U908 in the Education box to learn more about Carpal Tunnel Syndrome: Exercises. Current as of: January 19, 2019 Content Version: 12.3 [employer]. Care instructions adapted under license by your healthcare professional. If you have questions about a medical condition or this instruction, always ask your healthcare professional. [employer] disclaims any warranty or liability for your use of this information. documented in this encounter* Patient Instructions* Blanca Cerna CNP - 05/21/2020 8:56 AM EDT Problem List Items Addressed This Visit Other Bilateral hand numbness Relevant Orders Ambulatory referral to Orthopedics Bilateral wrist pain - Primary Relevant Orders Ambulatory referral to Orthopedics Other Visit Diagnoses Need for influenza vaccination Relevant Orders Influenza IIV4 3yo or >,Fluzone Quad (Completed) If any referrals were placed at the time of your visit please allow 2 weeks for processing. If you haven't heard from anyone within 2 weeks please contact my office so we can look into the status of your referral. If you were given any labs today please ensure they are completed according to the directions given. Once labs are completed please allow 1-2 weeks for us to receive the results, review them, and letyou know what steps, if any, are needed next. If you haven't heard from us after that please call to inquire. If labs were ordered to be done PRIOR to your next visit we will discuss the results at the time ofyour office visit. If any procedures or imaging studies were ordered that must be prior authorized please give us 2 weeks to get them approved. Once approved someone should call you to schedule them or give you a date and time that they were scheduled for. If you haven't heard anything within 2 weeks of the office visit please call the office so we can look into their status. Customer Service/Billing Questions: [phone] [facility] Assistance: [phone] or [phone] Financial Assistance: [phone] or [phone] As of August 01, 2019 my schedule will be changing: Thursday 7 am to 5 pm Thursday 7 am to 5 pm Thursday closed 7 am to 5 pm Thursday 7 am to 1 pm documented in this encounter* Patient Instructions* Blanca Cerna CNP - 09/03/2018 9:38 AM EST Problem List Items Addressed This Visit Respiratory Sinusitis, acute frontal - Primary I think the dizziness may be caused by a sinus infection, you have gradually gotten worse. Recommend using the Nasacort instead of Flonase. Flonase has a terrible smell and has alcohol which can burn. Nasacort has neither of these. Will prescribe 5 days of prednisone to help decrease swelling and inflammation and Doxycycline x 7 days. Take with food, this medicine is hard on the stomach. Lots of fluids and lots of rest. Make sure you are taking some probiotics or eating a lot of yogurt. Relevant Medications doxycycline hyclate (VIBRA-TABS) 100 MG tablet predniSONE (DELTASONE) 20 MG tablet Other Dizziness of unknown cause Will treat for sinus infection to see if this improves the dizziness. If you are still not getting any better make sure you are following up. in this encounter History of Present Illness * Blanca Cerna CNP - 08/17/2018 9:22 AM EST Subjective Patient ID: Hilary Rodriguez is a 27 y.o. female. Patient is here today to establish care. She is new to this provider and new to this practice. Has not had routine labs done ever. She has been followed closely by [facility] but has not had a PCP since adulthood. Dizziness: Has been present the last 3-4 months, she feels like it is getting worse because she is having episodes of dizziness up to 3-4 times a day. Each episode lasts about 1-2 minutes. If the episode happens when she is standing she will feel off balance and dizzy but the room does not spin. Sometimes it happens when laying down and she feels like the whole room is spinning like she is drunk.She does not drink alcohol. Patient states she has always suffered from headaches, she has seen a chiropractor on a regular basis for headache treatment and tension. She states her headaches are always in a different spot, never the same spot. The last two weeks the headaches have been behind both e yes. No vision changes. Denies head congestion. Does have environmental allergies, unsure of what triggers allergies. She states her worst seasons are spring and fall. She will occasionally take a Claritin if symptoms get to bothering her, this is rarely. Denies any ear pressure, fullness, or pain.Denies any shortness of breath, palpitations, chest pain, or chest tightness. She is moderately active, able to get up a flight of stairs with no shortness of breath. Chases 2 small kids daily. Only one cup of caffeine daily with her morning coffee. In high school had frequent headaches and had sleep study and a head CT scan, she does not rememberanything that needed followed up on. No other testing was done after that. She went to eye dr and needed glasses 2 years later which helped headaches to a certain extent. The following portions of the patient's history were reviewed and updated as appropriate: allergies, current medications, past family history, past medical history, past social history, past surgicalhistory and problem list. Review of Systems Constitutional: Negative for activity change, appetite change, fatigue and unexpected weight change. HENT: Positive for sinus pressure. Negative for congestion, postnasal drip, rhinorrhea, sinus pain and sneezing. Eyes: Negative for photophobia and visual disturbance. Respiratory: Negative for cough, chest tightness, shortness of breath and wheezing. Cardiovascular: Negative for chest pain and palpitations. Gastrointestinal: Negative for constipation, diarrhea, nausea and vomiting. Endocrine: Negative for cold intolerance and heat intolerance. Genitourinary: Negative for dysuria, frequency and urgency. Musculoskeletal: Positive for back pain and myalgias. Negative for arthralgias, gait problem and joint swelling. Skin: Negative. Allergic/Immunologic: Positive for environmental allergies and food allergies. Neurological: Positive for dizziness, light-headedness and headaches. Negative for weakness. Hematological: Negative. Psychiatric/Behavioral: Negative for agitation, decreased concentration, dysphoric mood and sleep disturbance. The patient is not nervous/anxious. Objective Physical Exam Constitutional: Vital signs are normal. She appears well-developed and well-nourished. HENT: Head: Normocephalic. Right Ear: External ear normal. Tympanic membrane is injected. A middle ear effusion is present. Left Ear: External ear normal. Tympanic membrane is injected. A middle ear effusion is present. Nose: Mucosal edema and rhinorrhea present. Right sinus exhibits no maxillary sinus tenderness and no frontal sinus tenderness. Left sinus exhibits no maxillary sinus tenderness and no frontal sinus tenderness. Mouth/Throat: Uvula is midline and mucous membranes are normal. Posterior oropharyngeal erythema present. Eyes: Pupils are equal, round, and reactive to light. Conjunctivae, EOM and lids are normal. Neck: Trachea normal, normal range of motion and full passive range of motion without pain. Neck supple. No JVD present. Carotid bruit is not present. No thyroid mass and no thyromegaly present. Cardiovascular: Normal rate, regular rhythm, normal heart sounds and normal pulses. No murmur heard. Pulmonary/Chest: Effort normal. She has no decreased breath sounds. She has no wheezes. She has no rhonchi. She has no rales. Abdominal: Soft. Normal appearance and bowel sounds are normal. There is no tenderness. There is noCVA tenderness. No hernia. Lymphadenopathy: Head (right side): Tonsillar adenopathy present. No submandibular adenopathy present. Head (left side): Tonsillar adenopathy present. No submandibular adenopathy present. She has no cervical adenopathy. Neurological: She is alert. She has normal strength. No cranial nerve deficit. Skin: Skin is warm, dry and intact. No rash noted. Psychiatric: She has a normal mood and affect. Her speech is normal and behavior is normal. Thoughtcontent normal. Vitals: 08/17/18 0903 BP: 113/72 BP Location: Left arm Patient Position: Sitting BP Cuff Size: Adult Pulse: 74 Resp: 18 Temp: 98.1 F (36.7 C) TempSrc: Oral SpO2: 98% Weight: 63.5 kg (140 lb) Height: 4' 11 Body mass index is 28.28 kg/m . Medication List Accurate as of 08/17/18 11:07 AM. If you have any questions, ask your nurse or doctor. START taking these medications fluticasone 50 mcg/actuation nasal spray Commonly known as: FLONASE Instill 2 (two) sprays into each nostril daily . Started by: Blanca Cerna CNP CONTINUE taking these medications acyclovir 400 MG tablet Commonly known as: ZOVIRAX flu vaccine qv 2018 (36mos up)(PF) sdv injection Commonly known as: FLUZONE QUAD levonorgestrel-ethinyl estradiol 0.15-0.03 mg per tablet Commonly known as: ALE Where to Get Your Medications These medications were sent to [facility] [address] [place] [address] - [address] [facility] [id number] fluticasone 50 mcg/actuation nasal spray Allergies Allergen Reactions Other Environmental Penicillins Other (See Comments) Childhood reaction Past Medical History: Diagnosis Date Environmental allergies 1998 Genital herpes 2009 HPV in female 05/2017 /Lyn[facility]ay/Dr Mars Quinn - [facility] Pap smear, low-risk 06/05/2018 /Lyndsay/Dr Mars Quinn Past Surgical History: Procedure Laterality Date DILATION AND CURETTAGE (D AND C) 2008 /Lyndsay Assessment/Plan: Problem List Items Addressed This Visit Nervous and Auditory Bilateral acute serous otitis media You have fluid behind both ear drums which can cause dizziness. Use Flonase 2 sprays in each nostril daily every single day to see if this helps with sinus pressure and to open up your eustachian tubes. Use a heating pad on your ears to help with ear pressure. Relevant Medications fluticasone (FLONASE) 50 mcg/actuation nasal spray Other Environmental allergies Using a Neti Pot daily can help eliminate a lot of allergy symptoms and congestion. Relevant Medications fluticasone (FLONASE) 50 mcg/actuation nasal spray Dizziness of unknown cause - Primary Will do labs to see if we can identify a reason for the dizziness. Will have yous use Flonase to help with sinus congestion and fluid behind your ear drums. If this does not help I will order a sleepstudy due to not waking up rested and unsure what sleep study was for in high school. You are more under the impression you are not waking up rested due to your husbands sleep habits. The lab is open here at the office M-F 730am-4pm, you do not need an appointment, just walk in. I would like you to obtain some fasting blood work. This means that you can not have anything to eat or drink for about 10 hours before your blood is drawn. The only thing you are allowed to have before your labs is a glass of water or a cup of BLACK coffee. Thank you. Relevant Medications fluticasone (FLONASE) 50 mcg/actuation nasal spray Other Relevant Orders CBC and Differential Lipid Panel Comprehensive Metabolic Panel TSH with Reflex Free T4 BMI 28.0-28.9,adult Eat meat, vegetables, nuts and seeds, some fruit, very little starch and absolutely no sugar. If you can grow it or kill it, then that's what you should be eating..... Chicken, turkey, fish pork, beef, ALL vegetables and fruit. If it is processed or you can not pronounce the ingredients, do not eat it! Shop the outside perimeter of the grocery store. Listen to your body, if you are hungry all the time you may need to increase your intake of healthyveggies and small healthy snacks. Eat whole, healthy foods and you won't need to count calories. Increase your activity level; the more you move your body the healthier you will be and the better you will feel! Diet and Exercise is not a fad, it really works! Other Visit Diagnoses Influenza vaccine needed Relevant Medications flu vaccine qv 2018, 36mos up,,PF, sdv (FLUZONE QUAD) injection Other Relevant Orders Influenza IIV4 3yo or >,Fluzone Quad (Completed) For any new medications prescribed today, patient was educated about indications for the medication, how to take the medication and potential side effects of the medications. in this encounter* Blanca Cerna CNP - 09/27/2019 3:54 PM EST Subjective Patient ID: Hilary Rodriguez is a 28 y.o. female. Sinusitis This is a new problem. Episode onset: 2 weeks. The problem has been gradually worsening since onset. There has been no fever. Her pain is at a severity of 5/10. The pain is moderate. Associated symptoms include congestion, headaches and sinus pressure. Pertinent negatives include no chills, coughing, diaphoresis, ear pain, hoarse voice, neck pain, shortness of breath, sneezing, sore throat or swollen glands. Treatments tried: Flonase. The treatment provided mild relief. Wrist Pain The pain is present in the right wrist. This is a new problem. Episode onset: 9 months. There has been no history of extremity trauma. The problem occurs constantly. The problem has been waxing and waning. The quality of the pain is described as aching. The pain is at a severity of 8/10. Associatedsymptoms include joint swelling, a limited range of motion, numbness, stiffness and tingling. Pertinent negatives include no fever, inability to bear weight, itching or joint locking. She has tried NSAIDS (brace) for the symptoms. Family history does not include gout or rheumatoid arthritis. There is no history of diabetes, gout, osteoarthritis or rheumatoid arthritis. The following were reviewed and updated as appropriate for today's visit: allergies, current medications, past family history, past medical history, past social history, past surgical history and problem list. Patient's Medications New Prescriptions PREDNISONE (DELTASONE) 20 MG TABLET Take 2 (two) tablets (40 mg total) by mouth daily for 5 days . Previous Medications ACYCLOVIR (ZOVIRAX) 400 MG TABLET Take 400 mg by mouth 2 (two) times a day . LEVONORGESTREL-ETHINYL ESTRADIOL (NORDETTE) 0.15-0.03 MG PER TABLET Take 1 tablet by mouth daily . Modified Medications Modified Medication Previous Medication DOXYCYCLINE HYCLATE (VIBRA-TABS) 100 MG TABLET doxycycline hyclate (VIBRA-TABS) 100 MG tablet Take 1 (one) tablet (100 mg total) by mouth 2 (two) times a day . Take 1 (one) tablet (100 mg total) by mouth 2 (two) times a day . Discontinued Medications No medications on file Review of Systems Review of Systems Constitutional: Negative for chills, diaphoresis and fever. HENT: Positive for congestion and sinus pressure. Negative for ear pain, hoarse voice, sneezing andsore throat. Respiratory: Negative for cough and shortness of breath. Musculoskeletal: Positive for arthralgias, joint swelling and stiffness. Negative for gout and neckpain. Skin: Negative for itching. Neurological: Positive for tingling, numbness and headaches. Vitals: 09/27/19 1543 BP: 122/72 BP Location: Left arm Patient Position: Sitting BP Cuff Size: Adult Pulse: 92 Resp: 18 Temp: 98.3 F (36.8 C) TempSrc: Oral SpO2: 98% Weight: 60.3 kg (133 lb) Height: 4' 11 Body mass index is 26.86 kg/m . Physical Exam Physical Exam Constitutional: She is oriented to person, place, and time. She appears well- developed and well-nourished. HENT: Right Ear: External ear normal. A middle ear effusion is present. Left Ear: External ear normal. A middle ear effusion is present. Nose: Mucosal edema and rhinorrhea present. Right sinus exhibits maxillary sinus tenderness. Right sinus exhibits no frontal sinus tenderness. Left sinus exhibits maxillary sinus tenderness. Left sinus exhibits no frontal sinus tenderness. Mouth/Throat: Mucous membranes are normal. Posterior oropharyngeal erythema present. Eyes: Conjunctivae, EOM and lids are normal. Neck: Normal range of motion. Cardiovascular: Normal rate, regular rhythm and normal heart sounds. No murmur heard. Pulmonary/Chest: Effort normal and breath sounds normal. Musculoskeletal: Right wrist: She exhibits decreased range of motion and tenderness. She exhibits no bony tenderness, no swelling and no effusion. Comments: Normal gait Lymphadenopathy: Head (right side): Tonsillar adenopathy present. Head (left side): Tonsillar adenopathy present. Neurological: She is alert and oriented to person, place, and time. GCS eye subscore is 4. GCS verbal subscore is 5. GCS motor subscore is 6. Skin: Skin is warm and dry. Psychiatric: She has a normal mood and affect. Her speech is normal and behavior is normal. No data recorded Assessment/Plan Problem List Items Addressed This Visit Respiratory Sinusitis, acute frontal Relevant Medications doxycycline hyclate (VIBRA-TABS) 100 MG tablet predniSONE (DELTASONE) 20 MG tablet Other Visit Diagnoses Right wrist pain - Primary Relevant Orders Ambulatory referral to Neurology For any new medications prescribed today, patient was educated about indications for the medication, how to take the medication and potential side effects of the medications. Blanca Cerna CNP documented in this encounter* Enrique Fagan MD - 01/18/2020 9:25 AM EDT [facility] - Neurology [address] [place] [id number] Nerve Conduction & EMG Report Patient: Hilary Rodriguez Sex: Female Date of : 1990 Visit Date: 01/18/2020 08:27 Age: 29 Years Examining MD: Dr. Fagan Referred by: NAHID [facility] Temperature: 32.2 .Current Height: 5 feet 0 inch Referred for: A year of numbness RUE. + neck pain. No DM. Plan: This study is design to evaluate for entrapment neuropathy, median or ulnar neuropathy, radiculopathy, or brachial plexopathy. Procedure indication, side effects, complications, risk and alternatives were explain. Patient agreed to proceed with verbal consent obtain. Patient was instructed toclean the puncture site with soap and water and put some ice pack for bruising. EMG Summary: The right median and ulnar motor and sensory nerve conduction studies were normal. Theright radial, medial and lateral antebrachial cutaneous sensory nerve conduction studies were also normal. Needle EMG of the tested muscle showed no abnormal spontaneous activity. Normal motor unit action potentials and recruitment patterns were seen. Impression: This is a normal EMG. There is NO clear electrodiagnostic evidence of a right cervical radiculopathy, brachial plexopathy, entrapment neuropathy, median or ulnar neuropathy at this time. Enrique Fagan MD Diplomate, ABPN, NBPAS Clinical Neurophysiology, Neurology, Vascular Neurology and Sleep Medicine [facility] [place] [phone] Nota bene: Portions of this chart was created using [employer] voice recognition software. Occasional wrong-word or sound-like substitutions may have occurred due to inherent limitations of the voice recognition software. Please read the chart carefully and recognize, using context, where the substitutions have occurred. Motor NCS Nerve / Sites Muscle Latency Amplitude Distance Velocity ms mV mm m/s R Median - APB Wrist APB 3.46 7.7 7 Elbow APB 6.90 8.2 20 58.2 R Ulnar - ADM Wrist ADM 2.15 11.1 6.5 B.Elbow ADM 4.92 10.9 18 65.0 A.Elbow ADM 6.60 11.4 10 59.3 Sensory NCS Nerve / Sites Rec. Site Lat. 2 Amp.1-2 Amp.2-3 Distance Velocity d Lat.2 ms V V mm m/s ms R Median, Ulnar - Transcarpal comparison Median Palm Wrist 1.83 43.9 58.3 8 61 Ulnar Palm Wrist 1.60 21.8 27.4 8 72 0.23 R Radial - Snuff Forearm Snuff 1.98 21.6 57.4 10 63 R Medial antebrachial cutaneous - Forearm Elbow Forearm 1.77 10.2 8.2 12 86 R Lateral antebrachial cutaneous - Forearm Elbow Forearm 1.67 12.3 4.3 12 107 EMG Summary Table Spontaneous Activity Amplitude Duration Recruitment Activation Polyphasia Comment Muscle Ins Act Fib Fasc - - - - - - R. Deltoid Normal 0 0 Normal Normal Normal Normal Normal Normal R. Triceps brachii Normal 0 0 Normal Normal Normal Normal Normal Normal R. Biceps brachii Normal 0 0 Normal Normal Normal Normal Normal Normal R. Pronator teres Normal 0 0 Normal Normal Normal Normal Normal Normal R. Extensor digitorum communis Normal 0 0 Normal Normal Normal Normal Normal Normal R. First dorsal interosseous Normal 0 0 Normal Normal Normal Normal Normal Normal R. Abductor pollicis brevis Normal 0 0 Normal Normal Normal Normal Normal Normal R. Cervical paraspinals Normal 0 0 Normal Normal Normal Normal Normal Normal documented in this encounter* Blanca Cerna CNP - 05/21/2020 8:44 AM EDT Subjective Patient ID: Hilary Rodriguez is a 29 y.o. female. Wrist pain: Patient started having issues with right wrist pain with numbness and tingling in her right hand at least one year ago. She had EMG done December 2019 and it was negative for any type of nerve conduction issues. She has continued to have right wrist pain with numbness and tingling in her right hand and she is now having identical symptoms in her left wrist and hand. She states while she was off of work from September to January 2020 and her symptoms almost completely resolved. When she went back to work in January her symptoms returned including the new issues with left hand. 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 She states she will quit using one hand because it goes to sleep and then will have to use the other hand which will then go to sleep. She spends all day alternating use of her hands due to symptoms. She feels like she has lost some strength in her hands and is having difficulty opening all bottles including a simple water bottle. Patient states that she has been seeing a chiropractor with on relief. She states Aleve as needed for pain. The following were reviewed and updated as appropriate for today's visit: allergies, current medications, past family history, past medical history, past social history, past surgical history and problem list. Patient's Medications New Prescriptions No medications on file Previous Medications LEVONORGESTREL-ETHINYL ESTRADIOL (NORDETTE) 0.15-0.03 MG PER TABLET Take 1 tablet by mouth daily . Modified Medications No medications on file Discontinued Medications ACYCLOVIR (ZOVIRAX) 400 MG TABLET Take 400 mg by mouth 2 (two) times a day . DOXYCYCLINE HYCLATE (VIBRA-TABS) 100 MG TABLET Take 1 (one) tablet (100 mg total) by mouth 2 (two) times a day . Review of Systems Review of Systems Constitutional: Negative for chills, diaphoresis and fever. Respiratory: Negative for cough and shortness of breath. Musculoskeletal: Positive for arthralgias, joint swelling and neck stiffness. Negative for neck pain. Skin: Negative. Neurological: Positive for numbness and headaches. Vitals: 05/21/20 0824 BP: 120/79 BP Location: Left arm Patient Position: Sitting BP Cuff Size: X-large Adult Pulse: 83 Resp: 16 Temp: 99.4 F (37.4 C) TempSrc: Temporal SpO2: 99% Weight: 61.3 kg (135 lb 1.6 oz) Height: 4' 11 Body mass index is 27.29 kg/m . Physical Exam Physical Exam Constitutional: She is oriented to person, place, and time. She appears well- developed and well-nourished. HENT: Right Ear: External ear normal. Left Ear: External ear normal. Nose: Nose normal. Mouth/Throat: Oropharynx is clear and moist and mucous membranes are normal. Eyes: Conjunctivae, EOM and lids are normal. Neck: Normal range of motion. Cardiovascular: Normal rate, regular rhythm and normal heart sounds. No murmur heard. Pulmonary/Chest: Effort normal and breath sounds normal. Musculoskeletal: Right wrist: She exhibits tenderness. She exhibits normal range of motion, no swelling and no deformity. Left wrist: She exhibits tenderness. She exhibits normal range of motion, no swelling and no deformity. Right hand: She exhibits tenderness. Decreased strength noted. Left hand: She exhibits tenderness. Decreased strength noted. Comments: Normal gait Neurological: She is alert and oriented to person, place, and time. GCS eye subscore is 4. GCS verbal subscore is 5. GCS motor subscore is 6. Skin: Skin is warm and dry. Psychiatric: She has a normal mood and affect. Her speech is normal and behavior is normal. OARRS/NARxCHECK Report Received and Assessed: No data found Date controlled substance agreement signed: No data found Date of last drug screen: No data found Functional Assessment: No data found Assessment/Plan Problem List Items Addressed This Visit Other Bilateral hand numbness Relevant Orders Ambulatory referral to Orthopedics Bilateral wrist pain - Primary Relevant Orders Ambulatory referral to Orthopedics Other Visit Diagnoses Need for influenza vaccination Relevant Orders Influenza IIV4 3yo or >,Fluzone Quad (Completed) For any new medications prescribed today, patient was educated about indications for the medication, how to take the medication and potential side effects of the medications. Blanca Cerna CNP documented in this encounter* Jaclyn Cummings MD - 06/06/2020 8:25 AM EST Subjective: Patient ID: Hilary Rodriguez is a 29 y.o. female. HPI: Patient is a 29-year-old female who has had pain and numbness in both hands for approximately a year. He has worse with activity when there was a shot down at work and she worked last she had less symptoms. She has tried wrist braces at night with minimal success. She denies any other symptomatology. She has no previous injury and she has no other joint abnormalities. She had an EMG nerve conduction which was normal. Review of Systems: Review of Systems Constitutional: Negative for activity change, appetite change, chills, fatigue and fever. HENT: Negative for congestion and trouble swallowing. Respiratory: Negative for chest tightness and shortness of breath. Cardiovascular: Negative for chest pain and palpitations. Gastrointestinal: Negative for constipation and diarrhea. Genitourinary: Negative for difficulty urinating and hematuria. Musculoskeletal: Negative for arthralgias, back pain, gait problem, joint swelling, myalgias, neck pain and neck stiffness. Neurological: Positive for numbness. Negative for light-headedness and headaches. Hematological: Negative for adenopathy. Does not bruise/bleed easily. Patient Active Problem List Diagnosis Environmental allergies BMI 28.0-28.9,adult Bilateral wrist pain Bilateral hand numbness Objective: Physical Exam Dictation on: 06/06/2020 8:28 AM by: JACLYN CUMMINGS [[id number]] Imaging Studies: No results found. Assessment: 1. Bilateral wrist pain 2. Bilateral hand numbness Plan: 1. Orders Placed This Encounter Procedures Carpal Tunnel Injection: Carpal Tunnel No follow-ups on file. * Jaclyn Cummings MD - 06/06/2020 8:24 AM EST Associated Order(s): Carpal Tunnel Injection: Carpal Tunnel Post-Procedure Diagnose(s): Bilateral hand numbness Carpal Tunnel Injection: Carpal Tunnel Performed by: Jaclyn Cummings MD Authorized by: Jaclyn Cummings MD Consent given by: Patient Time out: Immediately prior to the procedure a time out was called Timeout performed at: 06/06/2020 8:25 AM Physician or proceduralist has discussed critical or nonroutine steps, procedure duration and anticipated blood loss: Yes Indications: Pain Location: Wrist Laterality: Right Site: Carpal Tunnel Prep: patient was prepped and draped in usual sterile fashion Needle size: 22 G Approach: Volar Medications: 40 mg triamcinolone acetonide 40 mg/mL Anesthetic used: Ethyl Chloride Patient tolerance: Patient tolerated the procedure well with no immediate complications documented in this encounter* Blanca Cerna CNP - 09/03/2018 9:26 AM EST Subjective Patient ID: Hilary Rodriguez is a 27 y.o. female. Patient has continued to have dizziness over the past two weeks. It is not worsening but has not improved with the Flonase and heating pads to the neck for ETD. Patient had a fever Thursday and Thursday of 100.0 F. She notes when she uses the Flonase she is having pain and burning at the bridge of her nose/between eyes. She has also had a scratchy throat. The following portions of the patient's history were reviewed and updated as appropriate: allergies, current medications, past family history, past medical history, past social history, past surgicalhistory and problem list. Review of Systems Constitutional: Positive for fatigue and fever. Negative for activity change, appetite change and chills. HENT: Positive for congestion, sinus pressure (slight) and sore throat. Negative for ear discharge,ear pain, facial swelling, postnasal drip, rhinorrhea, sinus pain, sneezing and voice change. Eyes: Negative for photophobia, pain, discharge, redness, itching and visual disturbance. Respiratory: Negative for cough, chest tightness and stridor. Cardiovascular: Negative for chest pain and palpitations. Gastrointestinal: Negative for constipation, diarrhea, nausea and vomiting. Musculoskeletal: Negative for arthralgias and myalgias. Skin: Negative. Allergic/Immunologic: Positive for environmental allergies. Neurological: Positive for dizziness, light-headedness and headaches. Negative for syncope, facial asymmetry, speech difficulty, weakness and numbness. Objective Physical Exam Constitutional: She is oriented to person, place, and time. She appears well- developed and well-nourished. HENT: Right Ear: Tympanic membrane is injected. A middle ear effusion is present. Left Ear: A middle ear effusion is present. Nose: Mucosal edema and rhinorrhea present. Right sinus exhibits maxillary sinus tenderness and frontal sinus tenderness. Left sinus exhibits maxillary sinus tenderness and frontal sinus tenderness. Mouth/Throat: Uvula is midline and mucous membranes are normal. Posterior oropharyngeal erythema present. Cardiovascular: Normal rate, regular rhythm and normal heart sounds. Pulmonary/Chest: Effort normal and breath sounds normal. Musculoskeletal: Normal range of motion. Lymphadenopathy: Head (right side): Tonsillar adenopathy present. No submandibular adenopathy present. Head (left side): Tonsillar adenopathy present. No submandibular adenopathy present. Neurological: She is alert and oriented to person, place, and time. Skin: Skin is warm and dry. Psychiatric: She has a normal mood and affect. Her behavior is normal. Vitals: 09/03/18 0902 BP: 119/81 BP Location: Left arm Patient Position: Sitting BP Cuff Size: Adult Pulse: 79 Resp: 16 Temp: 98.1 F (36.7 C) TempSrc: Oral SpO2: 98% Weight: 65.4 kg (144 lb 3.2 oz) Height: 4' 11 Body mass index is 29.12 kg/m . Medication List Accurate as of 09/03/18 11:59 PM. If you have any questions, ask your nurse or doctor. START taking these medications doxycycline hyclate 100 MG tablet Commonly known as: VIBRA-TABS Take 1 (one) tablet (100 mg total) by mouth 2 (two) times a day . Started by: Blanca Cerna CNP predniSONE 20 MG tablet Commonly known as: DELTASONE Take 2 (two) tablets (40 mg total) by mouth daily for 5 days . Started by: Blanca Cerna CNP CONTINUE taking these medications acyclovir 400 MG tablet Commonly known as: ZOVIRAX levonorgestrel-ethinyl estradiol 0.15-0.03 mg per tablet Commonly known as: NORDETTE STOP taking these medications fluticasone 50 mcg/actuation nasal spray Commonly known as: FLONASE Stopped by: Blanca Cerna CNP Where to Get Your Medications These medications were sent to [facility] [address] [place] [address] - [address] [facility] [id number] doxycycline hyclate 100 MG tablet predniSONE 20 MG tablet Allergies Allergen Reactions Other Environmental Penicillins Other (See Comments) Childhood reaction Past Medical History: Diagnosis Date Environmental allergies 1998 Genital herpes 2009 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 Recommend using the Nasacort instead of Flonase. Flonase has a terrible smell and has alcohol which can burn. Nasacort has neither of these. Will prescribe 5 days of prednisone to help decrease swelling and inflammation and Doxycycline x 7 days. Take with food, this medicine is hard on the stomach. Lots of fluids and lots of rest. Make sure you are taking some probiotics or eating a lot of yogurt. Relevant Medications doxycycline hyclate (VIBRA-TABS) 100 MG tablet predniSONE (DELTASONE) 20 MG tablet Other Dizziness of unknown cause Will treat for sinus infection to see if this improves the dizziness. If you are still not getting any better make sure you are following up. Goals None No data recorded For any new medications prescribed today, patient was educated about indications for the medication, how to take the medication and potential side effects of the medications. * Ewelina Kern LPN - 09/03/2018 9:03 AM EST Pt reports she has been using the flonase and has tried using the hot pad on her neck. Pt reports she is still getting dizzy. Pt reports Thursday and Thursday this week she had a fever of 100.0. Pt denies any ear pain. in this encounter Assessments Diagnosis Dizziness of unknown cause- Primary Influenza vaccine needed Bilateral acute serous otitis media, recurrence not specified Environmental allergies Other allergy, other than to medicinal agents BMI 28.0-28.9,adult Diagnosis Right wrist pain Pain in joint, forearm Acute non-recurrent maxillary sinusitis Diagnosis Right wrist pain Pain in joint, forearm Diagnosis Bilateral wrist pain- Primary Bilateral hand numbness Disturbance of skin sensation Need for influenza vaccination Need for prophylactic vaccination and inoculation against influenza Diagnosis Bilateral wrist pain Bilateral hand numbness Disturbance of skin sensation Diagnosis Acute non-recurrent frontal sinusitis- Primary Dizziness of unknown cause Summary Purpose Family History No Family History Records FoundUnknown Family Member Name Dates Details No pertinent family history: Mother, Father(V49.89, Z78.9) Status:Active Family history of hypertensi on: Grandmother(V17.49, Z82.49) Status:Active Unknown Family Member Name Dates Details No pertinent family history: Mother, Father(V49.89, Z78.9) Status:Active Family history of hypertensi on: Grandmother(V17.49, Z82.49) Status:Active Unknown Family Member Name Dates Details No pertinent family history: Mother, Father(V49.89, Z78.9) Status:Active Family history of hypertensi on: Grandmother(V17.49, Z82.49) Status:Active Unknown Family Member Name Dates Details No pertinent family history: Mother, Father(V49.89, Z78.9) Status:Active Family history of hypertensi on: Grandmother(V17.49, Z82.49) Status:Active Unknown Family Member Name Dates Details No pertinent family history: Mother, Father(V49.89, Z78.9) Status:Active Family history of hypertensi on: Grandmother(V17.49, Z82.49) Status:Active Unknown Family Member Name Dates Details No pertinent family history: Mother, Father(V49.89, Z78.9) Status:Active Family history of hypertensi on: Grandmother(V17.49, Z82.49) Status:Active Advance Directives No Advanced Directives Records FoundDocuments on File Type Date Recorded Patient Toddler Guide Expl anation Advance Directives and Living Will Documents on File Type Date Recorded Patient Toddler Guide Expl anation Advance Directives and Living Will Documents on File Type Date Recorded Patient Toddler Guide Expl anation Advance Directives and Livin g Will 02/19/2021 6:11 AM Reason for Referral Status Reason Specialty Diagnoses / Procedures Referred By Contact Referred To Contact Authorized Neurology Diagnoses Right wrist pain Blanca Cerna CNP [address] [place] [address] [facility] [address] Office [facility], [address] [place] [address] Status Reason Specialty Diagnoses / Procedures Referred By Contact Referred To Contact Authorized Orthopedic Surgery Diagnoses Bilateral wrist pain Bilateral hand numbness Blanca Cerna CNP [address] [place] [address] Ryder Mayorga MD [address] [place] [address] Chief Complaint Patient is here for her yearly exam and pap test. LMP: 08/20/2021. Patient does not do self breast exams and has no concerns at this time.Patient is here for her yearly exam and pap test. LMP: 08/19/2022. Patient does not do regular self breast exams and has no concerns at this time. Additional Source Comments Reason for Visit (unrecogniz ed section and content) Reason Comments Sinusitis > 1week facial press ure, dizziness, nasal congestion with post nasal drip, headaches Wrist Pain > 1 month worsening right side using brace at times, unable to flex back fingers, dull ache Status Reason Specialty Diagnoses / Procedures Referred By Contact Referred To Contact Closed Neurology Diagnoses Right wrist pain Blanca Cerna, SCRUBBER SYSTEM ATTENDANT [address] [place] [address] [facility] [address] Medical Office Building[address] [place] [address] Reason Comments Follow-up both wrist, still pa inful denies injury x 2 years numbness and tingling has no feeling in her hands most of the day Reason Comments Pain Status Reason Specialty Diagnoses / Procedures Referred By Contact Referred To Contact Closed Orthopedic Surgery Diagnoses Bilateral wrist pain Bilateral hand numbness Blanca Cerna CNP [address] [place] [id number] Ryder Mayorga MD [address] [place] [address] Reason Comments Dizziness Status Reason Specialty Diagnoses / Procedures Referre d By Contact Referred To Contact Closed Neurology Diagnoses Bilateral hand pain Bilateral hand numbness Pattie Cazares, SCRUBBER SYSTEM ATTENDANT [address] [address] Enrique Fagan MD [address] [address] Assessment & Plan Note - Blanca Cerna CNP - 08/17/2018 9:41 AM ESTAssessment & Plan Note - Blanca Cerna CNP - 08/17/2018 9:39 AM EST Miscellaneous Notes (unrecog nized section and content) Associated Problem(s): BMI 28.0-28.9,adult Eat meat, vegetables, nuts and seeds, some fruit, very little starch and absolutely no sugar. If you can grow it or kill it, then that's what you should be eating..... Chicken, turkey, fish pork, beef, ALL vegetables and fruit. If it is processed or you can not pronounce the ingredients, do not eat it! Shop the outside perimeter of the grocery store. Listen to your body, if you are hungry all the time you may need to increase your intake of healthy veggies and small healthy snacks. Eat whole, healthy foods and you won't need to count calories. Increase your activity level; the more you move your body the healthier you will be and the better you will feel! Diet and Exercise is not a fad, it really works! Associated Problem(s): Environmental allergies Using a Neti Pot daily can help eliminate a lot of allergy symptoms and congestion. Associated Problem(s): Dizziness of unknown cause Will do labs to see if we can identify a reason for the dizziness. Will have yous use Flonase to help with sinus congestion and fluid behind your ear drums. If this does not help I will order a sleep study due to not waking up rested and unsure what sleep study was for in high school. You are more under the impression you are not waking up rested due to your husbands sleep habits. The lab is open here at the office M-F 730am-4pm, you do not need an appointment, just walk in. I would like you to obtain some fasting blood work. This means that you can not have anything to eat or drink for about 10 hours before your blood is drawn. The only thing you are allowed to have before your labs is a glass of water or a cup of BLACK coffee. Thank you. Associated Problem(s): Bilateral acute serous otitis media You have fluid behind both ear drums which can cause dizziness. Use Flonase 2 sprays in each nostril daily every single day to see if this helps with sinus pressure and to open up your eustachian tubes. Use a heating pad on your ears to help with ear pressure. in this encounter Associated Problem(s): Dizziness of unknown cause Will treat for sinus infection to see if this improves the dizziness. If you are still not getting any better make sure you are following up. Associated Problem(s): Sinusitis, acute frontal I think the dizziness may be caused by a sinus infection, you have gradually gotten worse. Recommend using the Nasacort instead of Flonase. Flonase has a terrible smell and has alcohol which can burn. Nasacort has neither of these. Will prescribe 5 days of prednisone to help decrease swelling and inflammation and Doxycycline x 7 days. Take with food, this medicine is hard on the stomach. Lots of fluids and lots of rest. Make sure you are taking some probiotics or eating a lot of yogurt. in this encounter INFORMATION SOURCE (unrecogn ized section and content) DATE CREATED AUTHOR AUTHOR'S ORGANIZ ATION 09/08/2018 [facility] DATE CREATED AUTHOR AUTHOR'S ORGANIZ ATION 02/15/2019 [facility] DATE CREATED AUTHOR AUTHOR'S ORGANIZ ATION 02/16/2021 [facility] DATE CREATED AUTHOR AUTHOR'S ORGANIZ ATION 02/22/2021 [facility] DATE CREATED AUTHOR AUTHOR'S ORGANIZ ATION 08/26/2022 [employer] DATE CREATED AUTHOR AUTHOR'S ORGANIZ ATION 09/08/2022 [facility] DATE CREATED AUTHOR AUTHOR'S ORGANIZ ATION 03/20/2023 [facility] DATE CREATED AUTHOR AUTHOR'S ORGANIZ ATION 06/10/2023 [facility] Care Teams (unrecognized sec tion and content) 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 Section Author: Patricia Millard PROHIBITION ON REDISCLOSURE OF CONFIDENTIAL INFORMATION This notice accompanies a disclosure of information concerning a client made to you with the consent of such client. FOR RECORDS PERTAINING TO PATIENTS WHO ARE OR HAVE BEEN ENROLLED IN A CHEMICAL DEPENDENCY/SUBSTANCEABUSE PROGRAM, SOME INFORMATION MAY BE OMITTED. This clinical summary was aggregated from multiple sources. Caution should be exercised in using it in the provision of clinical care. This summary normalizes information from multiple sources, and as a consequence, information in this document may materially change the coding, format and clinical context of patient data. In addition, data may be omitted in some cases. CLINICAL DECISIONS SHOULD BE BASED ON THE PRIMARY CLINICAL RECORDS. [facility]. provides no warranty or guarantee of the accuracy or completeness of information in this document.
[2023-08-18 06:09] LABS: Chlamydia By Nucleic Acid AMP Negative (Negative); Gonococcus By Nucleic Acid AMP Negative (Negative)
== END | disposition home or self-care (01) ==
LOC: LABSPEC 16:21
PROVIDERS: Referring Provider Advanced Practice Midwife; Visit Provider Advanced Practice Midwife
DX: Z34.90 Encounter for supervision of normal pregnancy, unspecified, unspecified trimester (principal)
CPT/HCPCS: 87086; 87491; 87591

== ENCOUNTER → 2023-09-09 | Outpatient (CLI) | payer MEDICAID, SELFPAY ==
[2023-09-09 16:51] LABS: Absolute Lymphocyte Count 1.79 X10^3/uL (0.83-4.51); Absolute Neutrophil Count 6.2 X10^3/uL (2.0-7.7); Basophil# 0.02 X10^3/uL; Basophil% 0.2 % (0-1); Eosinophil# 0.04 X10^3/uL; Eosinophils% 0.5 % (0-5); Hematocrit 36.6 % (37-47); Hemoglobin 12.5 g/dL (12.0-15.0); Lymphocyte # 1.79 X10^3/ul (0.83-4.51); Lymphocyte % 20.5 % (19-41); Mean Corp Hgb Conc 34.2 g/dL (32-36); Mean Corpuscular Hgb 30.6 pg (27.0-32.0); Mean Corpuscular Volume 89.5 fL (81-99); Mean Platelet Vol. 8.6 fl (6.2-12.0); Monocyte# 0.62 X10^3/uL; Monocyte% 7.1 % (0-10); NRBC Flagged by Analyzer 0 % (0-5); Neutrophil # 6.22 X10^3/uL (2.7-7.7); Neutrophil % 71.4 % (47-70); Platelet Count 300 K/mm3 (150-450); RBC Distribution Width CV 12.9 % (11.6-14.6); RBC Distribution Width SD 42.4 fl (35.1-43.9); Red Blood Count 4.09 M/mm3 (4.2-5.4); White Blood Count 8.7 K/mm3 (4.4-11.0)
[2023-09-09 18:28] LABS: HIV - WCH Non-Reactive (Nonreactive); Hepatitis B Surface Antigen Non-Reactive (Nonreactive); Hepatitis C Antibody Non-Reactive (Nonreactive); Rubella IgG Reactive (Nonreactive); Syphilis Antibodies Non-reactive
--- OUTSIDE RECORDS SUMMARY | 2023-09-09 19:25 | XMS RPT_ITS | CCD ---
Author Name Unknown Address [address] [place] [address] Organization [facility] Care Team Providers Care Barrow Worker Helper Name Role Phone Irvin Hussein Primary Care Provider [phone] Blanca Cerna Admitting Unavailable ParsonsBlanca Attending Unavailable Blanca Cerna Primary Care Provider ParsonsBlanca Primary Care Provider [place] Blanca TIRADO Primary Care Provider [place] Blanca TIRADO Primary Care Provider NEW CANEYBLANCA Primary Care Unavailable JACLYN CUMMINGS Referring Unavail able JACLYN CUMMINGS Admitting Unavail able JACLYN CUMMINGS Admitting Unavail able JACLYN CUMMINGS Attending Unavail able BLANCA CERNA Primary Care Unavailable Parsons Blanca TIRADO Primary Care Provider [address] [...] [PENICILLINS] Drug Allergy 8 Other (See Comments) [facility] (9 sources) Penicillins; Translations: [PENICILLINS] Propensity to adverse reactions to drug 8 Other (See Comments) [facility] (20 sources) Other; Translations: [OTHER] Propensity to adverse reactions 8 [facility] (8 sources) Penicillins; Translations: [Penicillins] Allergy to drug (finding) Unknown [facility] [address] Work Phone: (2 sources) Penicillins Propensity to adverse reactions to drug 8 Other (See Comments) [facility] (2 sources) Penicillins Propensity to adverse reactions to drug 8 Other (See Comments) [facility] Medications Current Medications Medication Drug Class(es) Dates [...] Body height 152.4 cm No Pcp Required [facility] 03-25-2023 17:45-0400 Body temperature 100.22 [degF] No Pcp Required [facility] 03-25-2023 17:45-0400 Diastolic blood pressure 84 mm[Hg] No Pcp Required [facility] 03-25-2023 17:45-0400 Heart rate 111 /min No Pcp Required [facility] 03-25-2023 17:45-0400 Respiratory rate 16 /min No Pcp Required [facility] 03-25-2023 17:45-0400 SaO2% (BldA) [Mass fraction] 97 % No Pcp Required [facility] 03-25-2023 17:45-0400 Systolic blood pressure 125 mm[Hg] No Pcp Required [facility] 08-26-2022 08:31-0500 Body height 149.86 cm No PCP None [facility] Work Phone: 08-26-2022 08:31-0500 Body mass index (BMI) [Ratio] 27.96 kg/m2 No PCP None [employer] Work Phone: 08-26-2022 08:31-0500 Body surface area Derived from formula 1.58 m2 No PCP None [employer] Work Phone: 08-26-2022 08:31-0500 Body weight 62.8 kg No PCP None [facility] [place] [place] Work Phone: 08-26-2022 08:31-0500 Diastolic blood pressure 64 mm[Hg] No PCP None [facility] [place] [place] Work Phone: 08-26-2022 08:31-0500 Systolic blood pressure 118 mm[Hg] No PCP None [facility] [place] [place] Work Phone: 08-19-2022 12:07-0500 Body height 152 cm No Pcp Required [facility] 08-19-2022 12:07-0500 Body temperature 98.24 [degF] No Pcp Required [facility] 08-19-2022 12:07-0500 Diastolic blood pressure 101 mm[Hg] No Pcp Required [facility] 08-19-2022 12:07-0500 Heart rate 93 /min No Pcp Required [facility] 08-19-2022 12:07-0500 SaO2% (BldA) [Mass fraction] 97 % No Pcp Required [facility] 08-19-2022 12:07-0500 Systolic blood pressure 135 mm[Hg] No Pcp Required [facility] 09-06-2021 08:54-0500 Body height [address] Work Phone: [place] [address] [employer] Work Phone: 09-06-2021 08:54-0500 Body mass index (BMI) [Ratio] 27.3 kg/m2 [address] Work Phone: [place] [address] [employer] Work Phone: 09-06-2021 08:54-0500 Body surface area Derived from formula 1.[address] Work Phone: [place] [address] [employer] Work Phone: 09-06-2021 08:54-0500 Body temperature 97.7 [degF] [address] Work Phone: [place] [address] [place] Work Phone: 09-06-2021 08:54-0500 Body weight 61.[address] Work Phone: [place] [address] [place] Work Phone: 09-06-2021 08:54-0500 Diastolic blood pressure 68 mm[Hg] [address] Work Phone: [place] [address] [place] Work Phone: 09-06-2021 08:54-0500 Systolic blood pressure 122 mm[Hg] [address] Work Phone: [place] [address] [place] Work Phone: 08-23-2021 08:43-0500 Body height [address] Work Phone: [place] [address] [place] Work Phone: 08-23-2021 08:43-0500 Body mass index (BMI) [Ratio] 27.43 kg/m2 [address] Work Phone: [place] [address] [place] Work Phone: 08-23-2021 08:43-0500 Body surface area Derived from formula 1.[address] Work Phone: [place] [address] [place] Work Phone: 08-23-2021 08:43-0500 Body temperature 97.3 [degF] [address] Work Phone: [place] [address] [place] Work Phone: 08-23-2021 08:43-0500 Body weight 61.[address] Work Phone: [place] [address] [place] Work Phone: 08-23-2021 08:43-0500 Diastolic blood pressure 64 mm[Hg] [address] Work Phone: [facility] Work Phone: 08-23-2021 08:43-0500 Systolic blood pressure 112 mm[Hg] [address] Work Phone: [employer] Work Phone: 06-06-2020 07:57-0500 BMI (Body Mass Index) 27.27 kg/m2 [facility] 06-06-2020 07:57-0500 Body weight 61.24 kg Jaclyn [facility] 06-06-2020 07:57-0500 Height 149.9 cm [facility] 05-21-2020 08:24-0400 BMI (Body Mass Index) 27.29 kg/m2 [facility] 05-21-2020 08:24-0400 Body Temperature 99.39 [degF] [facility] 05-21-2020 08:24-0400 Body weight 61.28 kg [facility] 05-21-2020 08:24-0400 BP Diastolic 79 mm[Hg] [facility] 05-21-2020 08:24-0400 BP Systolic 120 mm[Hg] [facility] 05-21-2020 08:24-0400 Height 149.9 cm [facility] 05-21-2020 08:24-0400 Pulse (Heart Rate) 83 /min [facility] 05-21-2020 08:24-0400 Pulse Oximetry 99 % [facility] 05-21-2020 08:24-0400 Respiratory Rate 16 /min [facility] 09-27-2019 15:43-0500 BMI (Body Mass Index) 26.86 kg/m2 [facility] 09-27-2019 15:43-0500 Body Temperature 98.29 [degF] [facility] 09-27-2019 15:43-0500 Body weight 60.33 kg [facility] 09-27-2019 15:43-0500 BP Diastolic 72 mm[Hg] [facility] 09-27-2019 15:43-0500 BP Systolic 122 mm[Hg] [facility] 09-27-2019 15:43-0500 Height 149.9 cm [facility] 09-27-2019 15:43-0500 Pulse (Heart Rate) 92 /min [facility] 09-27-2019 15:43-0500 Pulse Oximetry 98 % [facility] 09-27-2019 15:43-0500 Respiratory Rate 18 /min [facility] 09-03-2018 09:02-0500 BMI (Body Mass Index) 29.12 kg/m2 [facility] 09-03-2018 09:02-0500 Body Temperature 98.1 [degF] [facility] 09-03-2018 09:02-0500 Body weight 65.41 kg [facility] 09-03-2018 09:02-0500 BP Diastolic 81 mm[Hg] [facility] 09-03-2018 09:02-0500 BP Systolic 119 mm[Hg] [facility] 09-03-2018 09:02-0500 Height 149.9 cm [facility] 09-03-2018 09:02-0500 Pulse (Heart Rate) 79 /min [facility] 09-03-2018 09:02-0500 Pulse Oximetry 98 % [facility] 09-03-2018 09:02-0500 Respiratory Rate 16 /min [facility] 08-17-2018 09:03-0500 BMI (Body Mass Index) 28.28 kg/m2 [facility] 08-17-2018 09:03-0500 Body Temperature 98.1 [degF] [facility] 08-17-2018 09:03-0500 BP Diastolic 72 mm[Hg] [facility] 08-17-2018 09:03-0500 BP Systolic 113 mm[Hg] [facility] 08-17-2018 09:03-0500 Height 149.9 cm [facility] 08-17-2018 09:03-0500 Pulse (Heart Rate) 74 /min [facility] 08-17-2018 09:03-0500 Pulse Oximetry 98 % [facility] 08-17-2018 09:03-0500 Respiratory Rate 18 /min [facility] 08-17-2018 09:03-0500 Weight 63.5 kg [facility] Encounters Encounter Date Encounter Type Care Provider Facility Start: 06-04-2023 End: 06-04-2023 Emergency department patient visit PHYSICIAN NO [facility] Start: 03-25-2023 End: 03-25-2023 Emergency department patient visit Peter Pritchard [facility] Start: 03-18-2023 End: 03-18-2023 ambulatory PHYSICIAN NO [facility] Start: 03-18-2023 End: 03-18-2023 Office outpatient visit 15 minutes Pattie Cazares CARPENTER/LABOR [facility] [place] Procedures Date Procedure Procedure Detail Performing Clinician Start: 03-18-2023 Injection 1 tendon sheath/ligament aponeurosis Pattiekamilla Sernafer CARPENTER/LABOR Work Phone: Start: 03-18-2023 Injection 1 tendon sheath/ligament aponeurosis Pattie Marnie Paris CARPENTER/LABOR Work Phone: Start: 08-05-2021 Injection 1 tendon sheath/ligament aponeurosis Pattie Marnie Sernafer CARPENTER/LABOR Work Phone: Start: 08-05-2021 Injection therapeuti c carpal tunnel Pattie Mranie Sernafer CARPENTER/LABOR Work Phone: Start: 06-06-2020 Injection therapeuti c carpal tunnel Jaclyn Cummings Work Phone: Start: 09-27-2019 Adult depression scr eening assessment Blanca Parsons Start: 08-24-2018 Complete blood count with white [...] ion [Identifier] in Cervix by Cyto stain [facility] Cold knife cone biop sy of cervix No PCP None Plan of Treatment Date Care Activity Detail Author Start: 07-27-2024 [facility] Start: 08-31-2023 Patient encounter procedure [facility] Start: 08-26-2023 History and physical examination, annual for health maintenance Wellness Visit [facility] Start: 03-27-2023 Influenza vaccination Sequenti al Influenza Vaccine (#1) [facility] Start: 08-26-2022 Patient encounter procedure [facility] Start: 08-23-2022 History and physical examination, annual for health maintenance Wellness Visit [facility] Start: 03-27-2022 Influenza vaccination Sequenti al Influenza Vaccine (#1) [facility] Start: 03-07-2022 PAPREPEAT, Provider: Mars Lane, Status: Pen, Time: 8:30 AM PAPREPEAT, Provider: Mars Lane, Status: Pen, Time: 8:30 AM [employer] Work Phone: Start: 08-23-2021 Patient encounter procedure ANNUAL, Provider: Mars Lane, Status: Pen, Time: 8:30 AM [employer] Work Phone: Start: 08-13-2021 Screening for malign ant neoplasm of cervix PAP SMEAR [facility] Start: 03-27-2021 Influenza vaccination Sequenti al Influenza Vaccine (#1) [facility] Start: 02-27-2021 End: 02-27-2021 Follow-up encounter 02/27/2021 Follow-Up Sports Medicine Jaclyn Cummings MD [address] [facility] [address] [place] [address] [phone] [facility] Start: 02-19-2021 End: 02-19-2021 Admission to same day surgery center 02/19/2021 Surgery Jaclyn Cummings MD [address] [place], [place] [id number] RELEASE CARPAL TUNNEL - RIGHT [facility] Periop Immunizations Immunization Date Immunization Notes Care Provider Fa cili 05-21-2020 influenza, injectabl e, quadrivalent, preservative free [facility] 05-21-2020 flu vacc [id number] 6 mos up,PF, sdv (FLUZONE QUAD) injection [facility] 08-17-2018 influenza, injectabl e, quadrivalent, contains preservative [facility] 08-17-2018 influenza, injectabl e, quadrivalent, preservative free [facility] 08-17-2018 flu vaccine qv 2018, 36mos up,,PF, sdv (FLUZONE QUAD) injection [facility] 11-25-2014 diphtheria, tetanus toxoids and acellular pertussis vaccine [facility] 11-25-2014 measles, mumps and r ubella virus vaccine [facility] Payers Date Payer Category Payer Worker's Compensation [id number] 2016 Medicaid [employer] MED[employer] xxxxxxxxxxx 2016-Present [id number] 2016 Medicaid [employer] MEDICA[employer] MEDICAID [id number] 2016-Present [id number] 2016 Medicaid [id number] 2016 Medicaid [id number] 2016 Unknown [id number] 1989 Unknown [id number] [id number]. 900 1989 Unknown [id number] 2.16.840.1.229588.3.579.2. 903 1989 Unknown [id number] 2.840.1.882194.3.579.2. 356 1989 Unknown [id number] 2.840.1.202931.3.579.2. 356 1989 Unknown [id number] 2.16.840.1.568524.3.579.2. 356 1989 Unknown [id number] 2.16.840.1.632233.3.579.2. 356 1989 Unknown [id number] 2.16.840.1.055606.3.579.2. 356 1989 Unknown [id number] 2.16.840.1.514118.3.579.2. 356 1989 Unknown [id number] 2.16.840.1.439221.3.579.2. 356 1989 Unknown [id number] 2.16.840.1.672065.3.579.2. 903 1989 Unknown [id number] 2.16.840.1.468676.3.579.2. 903 1989 Unknown [id number] 2.16.840.1.785638.3.579.2. 903 1989 Unknown [id number] 2.16.840.1.926726.3.579.2. 902 Unknown Social History Date Type Detail Facility Start: 06-03-2018 End: 08-17-2018 Tobacco smoking status ALIS Never smoker [facility] Start: 06-03-2018 Alcohol Comment mixed drinks/very rarely 3/4 yr [facility] Start: 1990 Sex Assigned At Not on file [facility] Start: 09-28-2019 End: 03-18-2023 Alcohol intake Current drinker of alcohol (finding) [facility] Start: 09-27-2019 End: 06-06-2020 History SDOH Social Connections Get Together 2 [facility] Start: 09-27-2019 End: 06-06-2020 [facility] Start: 07-26-2022 End: 08-05-2022 Exposure to SARS-CoV-2 (event) Not sure [facility] Start: 08-17-2018 End: 05-24-2020 Tobacco use and exposure Never used [facility] Start: 06-03-2018 Alcohol Comment mixed drinks/very rarely 3/4 yr [facility] Start: 09-27-2019 End: 06-06-2020 Never a smoker Never a smoker [facility] Tobacco smoking consumption unknown [facility] Start: 09-27-2019 End: 06-06-2020 Social connection and isolation panel [facility] Frequency of Communication with Friends and Family Not on file [facility] (I/We) worried wheth er (my/our) food would run out before (I/we) got money to buy more. Never true [facility] Start: 08-17-2018 Gender identity Identifies as female gender (finding) [facility] Start: 08-17-2018 Sexual orientation Heterosexual (finding) [facility] Clinical Notes 12-18-2020 to 03-18-2023 Pattie Cazares [...] agrees to proceed. documented in this encounter [facility] 08-26-2022 Note 4 Date of Procedure: 08/26/2022 Pathologist: [facility], Cytology Date Reported: 09/08/2022 Date Received: 08/26/2022 [...] Range: Negative Slide(s) initially screened by a Carpet Or Rug Layer Helper at [facility], [address] [place] [address] QC review performed at [facility], [address] [place] [id number] Testing for high-risk (HR) type of human [...] verified by the Molecular Diagnostic Laboratory at [facility]. The lab is certified under the Clinical Laboratory Amendments of 1988 (CLIA 88) as qualified to perform high complexity clinical laboratory testing. This specimen has been analyzed by the Bright FundsPrep Imaging System ([employer] an automated imaging and review system, which assists the laboratory in evaluating cells on ThinPrep Pap tests. Following automated imaging, selected anna from every slide were reviewed by a running specialist and/or pathologist. Electronically Signed Out By [facility], Cytology//LEDA/JMRonn By the signature on this report, the individual or group listed as making the Final Interpretation/Diagnosis certifies that they have reviewed this case. Diagnostic interpretation performed at [facility] [address] [place] [address] Educational Note: Cervical cytology is a screening [...] Source of Specimen A: THINPREP PAP CERVICAL [facility] Department of Pathology [id number] [place] [address] [facility] Diagnosis [...] is doing well on the control pills. [employer] Work Phone: History of Present illness NarrativePatient presents for colposcopy due to Pap smear showing ASCUS with positive high-risk HPV. She voices no complaints and is doing well.[employer] Work Phone: History of Present illness NarrativePresents for annual exam. She voices no complaints and is doing well. Denies any bowel or bladder problems. Denies any breast problems. She is doing well with the control pills.[employer] Work Phone: Instructions * Patient Instructions* Blanca [...] Log into your personal health record on [email or web address]://[email or web address].[email or web address] and enter Q823 in the Education box to learn more about Dizziness: Care Instructions. Current as of: April 18, 2018 Content Version: 11.9 5565-8651 Digital Message Display. Care instructions adapted under license by your healthcare professional. If you have questions about a medical condition or this instruction, always ask your healthcare professional. Digital Message Display disclaims any warranty or liability for your [...] Log into your personal health record on [email or web address]://[email or web address] and enter P834 in the Education box to learn more about Nikki Maneuver at Home for Vertigo: Exercises. Current as of: December 27, 2017 Content Version: .20056149-7126 Digital Message Display. Care instructions adapted under license by your healthcare professional. If you have questions about a medical condition or this instruction, always ask your healthcare professional. Digital Message Display disclaims any warranty or liability for your [...] Log into your personal health record on https://The Football [email or web address] [email or web address] and enter B784 in the Education box to learn more about Saline Nasal Washes: Care Instructions. Current as of: October 20, 2017 Content Version: 11.9 9104-7019 Digital Message Display. Care instructions adapted under license by your healthcare professional. If you have questions about a medical condition or this instruction, always ask your healthcare professional. Digital Message Display disclaims any warranty or liability for your [...] look into their status. Customer Service/Billing Questions: [phone] [facility] Assistance: [phone] or [phone] Financial Assistance: [phone] or [phone] As of August 01, 2019 my schedule [...] care for yourself at home? Take an hmoc-fit-buhzfog pain medicine, such as acetaminophen (Tylenol), ibuprofen (Advil, Motrin),or naproxen (Aleve). Read and follow all instructions on the label. If the doctor prescribed antibiotics, take them as directed. Do not stop taking them just because you feel better. You need to take the full course of antibiotics. Be careful when taking zxgn-xcd-yhvspwe cold or flu medicines and Tylenol at [...] Log into your personal health record on https://The Football [email or web address] [email or web address].Quixey and enter I933 in the Education box to learn more about Sinusitis: Care Instructions. Current as of: February 20, 2019 Content Version: 12.3 7194-8055 [employer]. Care instructions adapted under license by your healthcare professional. If you have questions about a medical condition or this instruction, always ask your healthcare professional. Digital Message Display disclaims any warranty or liability for your [...] hand palm down. Follow-up care is a tamayo part of your treatment and safety. Be sure to make and go to all appointments, and call your doctor if you are having problems. It's also a good idea to know your test resultsand keep a list of the medicines you take. Where can you learn more? Log into your personal health record on https://[email or web address].[email or web address] and enter U908 in the Education box to learn more about Carpal Tunnel Syndrome: Exercises. Current as of: January 19, 2019 Content Version: 12.3 Digital Message Display. Care instructions adapted under license by your healthcare professional. If you have questions about a medical condition or this instruction, always ask your healthcare professional. [employer] disclaims any warranty or liability for your [...] look into their status. Customer Service/Billing Questions: [phone] [facility] Assistance: [phone] or [phone] Financial Assistance: [phone] or [phone] As of August 01, 2019 my schedule [...] ever. 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 Occasional wrong-word or sound-like [...] left hand. 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 [...] on: 06/06/2020 8:28 AM by: JACLYN CUMMINGS [[id number]] Imaging Studies: No results found. Assessment: 1. 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 /Lyndsay/Dr Mars Quinn - [facility]- Pap smear, low-risk 06/05/2018 /Lyndsay/Dr Mars Quinn [...] FoundDocuments on File Type Date Recorded 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 Location Manager Expl anation Advance Directives and Living Will Documents on File Type Date Recorded 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 Location Manager Expl 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 Advance Directives and Living Will Documents on File Type Date Recorded 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 Location Manager Expl anation Advance Directives and Livin g Will 02/19/2021 6:11 AM Reason for Referral Status Reason Specialty Diagnoses / Procedures Referred By Contact Referred To Contact Authorized Neurology Diagnoses Right wrist pain Blanca Cerna CNP [address] [place] [address] [facility] Neurology [address] Office [facility], [address] [place] [address] Status Reason Specialty Diagnoses / Procedures Referred By Contact Referred To Contact Authorized Orthopedic Surgery Diagnoses Bilateral wrist pain Bilateral hand numbness Blanca Cerna CNP [address] [place] [address] Ryder Mayorga MD [address] [place] [address] Chief Complaint Patient is here for her [...] Neurology Diagnoses Right wrist pain Blanca Cerna, CARPENTER/LABOR [address] [place] [address] [facility] [address] Medical Office Building, [address] [place] [address] Reason Comments Follow-up both wrist, still pa inful denies injury x 2 years numbness and tingling has no feeling in her hands most of the day Reason Comments Pain Status Reason Specialty Diagnoses / Procedures Referred By Contact Referred To Contact Closed Orthopedic Surgery Diagnoses Bilateral wrist pain Bilateral hand numbness Blanca Cerna CNP [address] [id number] Ryder Mayorga MD [address] [place] [address] Reason Comments Dizziness Status Reason Specialty Diagnoses / Procedures Referre d By Contact Referred To Contact Closed Neurology Diagnoses Bilateral hand pain Bilateral hand numbness Pattie Cazares, CARPENTER/LABOR [address] [address] Enrique Fagan MD [address] [place] [address] Assessment & Plan Note - Blanca Cerna [...] DATE CREATED AUTHOR AUTHOR'S ORGANIZ ATION 09/08/[address] [facility] DATE CREATED AUTHOR AUTHOR'S ORGANIZ ATION 02/15/2019 [facility] DATE CREATED AUTHOR AUTHOR'S ORGANIZ ATION 02/16/2021 [facility] DATE CREATED AUTHOR AUTHOR'S ORGANIZ ATION 02/22/2021 [facility] DATE CREATED AUTHOR AUTHOR'S ORGANIZ ATION 08/26/2022 [facility] DATE CREATED AUTHOR AUTHOR'S ORGANIZ ATION 09/08/2022 [facility] DATE CREATED AUTHOR AUTHOR'S ORGANIZ ATION 03/20/2023 [facility] DATE CREATED AUTHOR AUTHOR'S ORGANIZ ATION 06/10/2023 [facility] Care Teams (unrecognized sec tion and content) [place] Worker Helper Relationship Specialty Start Date End Date No, Physician [facility] PCP - General 06/24/22 [place] Worker Helper Relationship Specialty Start Date End Date No, Physician [facility] PCP - General 06/24/22 <item><item> Privacy Markings [...] BE BASED ON THE PRIMARY CLINICAL RECORDS. [employer] [facility]. provides no warranty or guarantee of the accuracy or completeness of information in this document.
== END | disposition home or self-care (01) ==
LOC: LAB 16:25
PROVIDERS: Referring Provider Advanced Practice Midwife; Visit Provider Advanced Practice Midwife
DX: Z34.90 Encounter for supervision of normal pregnancy, unspecified, unspecified trimester (principal)
CPT/HCPCS: 36415; 85025; 86703; 86762; 86780; 86803; 86850; 86900; 86901; 87340

== ENCOUNTER → 2023-10-09 | Outpatient (CLI) | payer MEDICAID, SELFPAY ==
--- OUTSIDE RECORDS SUMMARY | 2023-10-09 19:38 | XMS RPT_ITS | CCD ---
Author Name Unknown Address [address] [place] [address] Organization [facility] Care Team Providers Care [employer] Captain Name Role Phone Irvin Hussein Primary Care Provider Blanca Cerna Admitting Unavailable Blanca Cerna Attending Unavailable Blanca Cerna Primary Care Provider [place] Primary Care Provider [place] Blanca TIRADO Primary Care Provider [place] Blanca TIRADO Primary Care Provider MESABLANCA Primary Care Unavailable JACLYN CUMMINGS Referring Unavail able JACLYN CUMMINGS Admitting Unavail able JACLYN CUMMINGS Admitting Unavail able JACLYN CUMMINGS Attending Unavail able BLANCA CERNA Primary Care Unavailable [place] Blanca TIRADO Primary Care Provider Mars [...] Admitting Unavailable DANNA SOLIS Attending Unavailable DANNA SOLSI Referring Unavailable Mars Lane Primary Care Unavailable Mars Lane Attending Unavailable NO, PHYSICIAN Primary Care Unavailable PATTIE CAZARES Attending Unavailable PATTIE CAZARES Attending Unavailable NO, PHYSICIAN Primary Care Unavailable PATTIE CAZARES Attending Unavailable NO, PHYSICIAN Primary Care Unavailable NO, PHYSICIAN Primary Care Unavailable MOSES ALMONTE Attending Unava ilable MARTINEZ FONTANA Referring Unavailable MARS LANE Primary Care Unavailable KHADRA ANDRADE Attending Unavailable MARS LANE Primary Care Unavailable KHADRA ANDRADE Attending Unavailable MARTINEZ FONTANA Referring Unavailable Allergies Allergy Classification Reported Allergen(s) Allergy Type Date of Onset Reaction(s) Facility Penicillins (antibiotic) (9 sources) Penicillins; Translations: [PENICILLINS] Drug Allergy 8 Other (See Comments) [facility] (10 sources) Penicillins; Translations: [PENICILLINS] Propensity to adverse reactions to drug 4 Other (See Comments) [facility] (20 sources) Other; Translations: [OTHER] Propensity to adverse reactions 8 [facility] (8 sources) Penicillins; Translations: [Penicillins] Allergy to drug (finding) Unknown [facility] [address] [place] Work Phone: (2 sources) Penicillins Propensity to adverse reactions to drug 8 Other (See Comments) [facility] (2 sources) Penicillins Propensity to adverse reactions to drug 8 Other (See Comments) [facility] Medications Current Medications Medication Drug Class(es) [...] Body height 152.4 cm No Pcp Required [facility] 03-25-2023 17:45-0400 Body temperature 100.22 [degF] No Pcp [facility] 03-25-2023 17:45-0400 Diastolic blood pressure 84 mm[Hg] No Pcp [facility] 03-25-2023 17:45-0400 Heart rate 111 /min No Pcp [facility] 03-25-2023 17:45-0400 Respiratory rate 16 /min No Pcp [facility] 03-25-2023 17:45-0400 SaO2% (BldA) [Mass fraction] 97 % No Pcp [facility] 03-25-2023 17:45-0400 Systolic blood pressure 125 mm[Hg] No Pcp [facility] 08-26-2022 08:31-0500 Body height 149.86 cm No PCP None [facility] [address] Work Phone: 08-26-2022 08:31-0500 Body mass index (BMI) [Ratio] 27.96 kg/m2 No PCP None [facility] [place] Work Phone: 08-26-2022 08:31-0500 Body surface area Derived from formula 1.58 m2 No PCP None [facility] [place] Work Phone: 08-26-2022 08:31-0500 Body weight 62.8 kg No PCP None [place] [address] [address] Work Phone: 08-26-2022 08:31-0500 Diastolic blood pressure 64 mm[Hg] No PCP None [facility] [place] Work Phone: 08-26-2022 08:31-0500 Systolic blood pressure 118 mm[Hg] No PCP None [facility] [place] Work Phone: 08-19-2022 12:07-0500 Body height 152 cm No Pcp [facility] 08-19-2022 12:07-0500 Body temperature 98.24 [degF] No Pcp [facility] 08-19-2022 12:07-0500 Diastolic blood pressure 101 mm[Hg] No Pcp [facility] 08-19-2022 12:07-0500 Heart rate 93 /min No Pcp [facility] 08-19-2022 12:07-0500 SaO2% (BldA) [Mass fraction] 97 % No Pcp [facility] 08-19-2022 12:07-0500 Systolic blood pressure 135 mm[Hg] No Pcp [facility] 09-06-2021 08:54-0500 Body height 149.[address] Work Phone: [facility] [address] [place] Work Phone: 09-06-2021 08:54-0500 Body mass index (BMI) [Ratio] 27.3 kg/m2 [address] Work Phone: [facility] [place] Work Phone: 09-06-2021 08:54-0500 Body surface area Derived from formula 1.[address] Work Phone: [place] [address] [place] Work Phone: 09-06-2021 08:54-0500 Body temperature 97.7 [degF] [address] Work Phone: [facility] [place] [address] [place] Work Phone: 09-06-2021 08:54-0500 Body weight 61.[address] Work Phone: [place] [address] [place] Work Phone: 09-06-2021 08:54-0500 Diastolic blood pressure 68 mm[Hg] [address] Work Phone: [facility] [address] [place] Work Phone: 09-06-2021 08:54-0500 Systolic blood pressure 122 mm[Hg] [address] Work Phone: [place] [address] [place] Work Phone: 08-23-2021 08:43-0500 Body height 149.[address] Work Phone: [place] [address] [place] Work Phone: 08-23-2021 08:43-0500 Body mass index (BMI) [Ratio] 27.43 kg/m2 [address] Work Phone: [place] [address] [place] Work Phone: 08-23-2021 08:43-0500 Body surface area Derived from formula 1.[address] Work Phone: [place] Work Phone: 08-23-2021 08:43-0500 Body temperature 97.3 [degF] [address] Work Phone: [place] [address] [place] Work Phone: 08-23-2021 08:43-0500 Body weight 61.[address] Work Phone: [facility] [employer] Work Phone: 08-23-2021 08:43-0500 Diastolic blood pressure 64 mm[Hg] [address] Work Phone: [facility] Work Phone: 08-23-2021 08:43-0500 Systolic blood pressure 112 mm[Hg] [address] Work Phone: [employer] [employer] Work Phone: 06-06-2020 07:57-0500 BMI (Body Mass Index) 27.27 kg/m2 [facility] 06-06-2020 07:57-0500 Body weight 61.24 kg [facility] 06-06-2020 07:57-0500 Height 149.9 cm [facility] 05-21-2020 08:24-0400 BMI (Body Mass Index) 27.29 kg/m2 [facility] 05-21-2020 08:24-0400 Body Temperature 99.39 [degF] [facility] 05-21-2020 08:24-0400 Body weight 61.28 kg [facility] 05-21-2020 08:24-0400 BP Diastolic 79 mm[Hg] [facility] 05-21-2020 08:24-0400 BP Systolic 120 mm[Hg] [facility] 05-21-2020 08:24-0400 Height 149.9 cm [facility] 05-21-2020 08:24-0400 Pulse (Heart Rate) 83 /min [facility] 05-21-2020 08:24-0400 Pulse Oximetry 99 % [facility] 05-21-2020 08:24-0400 Respiratory Rate 16 /min [facility] 09-27-2019 15:43-0500 BMI (Body Mass Index) 26.86 kg/m2 [facility] 09-27-2019 15:43-0500 Body Temperature 98.29 [degF] [facility] 09-27-2019 15:43-0500 Body weight 60.33 kg [facility] 09-27-2019 15:43-0500 BP Diastolic 72 mm[Hg] [facility] 09-27-2019 15:43-0500 BP Systolic 122 mm[Hg] [facility] 09-27-2019 15:43-0500 Height 149.9 cm [facility] 09-27-2019 15:43-0500 Pulse (Heart Rate) 92 /min [facility] 09-27-2019 15:43-0500 Pulse Oximetry 98 % [facility] 09-27-2019 15:43-0500 Respiratory Rate 18 /min [facility] 09-03-2018 09:02-0500 BMI (Body Mass Index) 29.12 kg/m2 [facility] 09-03-2018 09:02-0500 Body Temperature 98.1 [degF] [facility] 09-03-2018 09:02-0500 Body weight 65.41 kg [facility] 09-03-2018 09:02-0500 BP Diastolic 81 mm[Hg] [facility] 09-03-2018 09:02-0500 BP Systolic 119 mm[Hg] [facility] 09-03-2018 09:02-0500 Height 149.9 cm [facility] 09-03-2018 09:02-0500 Pulse (Heart Rate) 79 /min [facility] 09-03-2018 09:02-0500 Pulse Oximetry 98 % [facility] 09-03-2018 09:02-0500 Respiratory Rate 16 /min [facility] 08-17-2018 09:03-0500 BMI (Body Mass Index) 28.28 kg/m2 [facility] 08-17-2018 09:03-0500 Body Temperature 98.1 [degF] [facility] 08-17-2018 09:03-0500 BP Diastolic 72 mm[Hg] [facility] 08-17-2018 09:03-0500 BP Systolic 113 mm[Hg] [facility] 08-17-2018 09:03-0500 Height 149.9 cm [facility] 08-17-2018 09:03-0500 Pulse (Heart Rate) 74 /min [facility] 08-17-2018 09:03-0500 Pulse Oximetry 98 % [facility] 08-17-2018 09:03-0500 Respiratory Rate 18 /min [facility] 08-17-2018 09:03-0500 Weight 63.5 kg [facility] Encounters Encounter Date Encounter Type Care Provider Facility Start: 09-16-2023 End: 09-16-2023 ambulatory MARS Jv [facility] Start: 06-04-2023 End: 06-04-2023 Emergency department patient visit PHYSICIAN MICA [facility] Start: 03-25-2023 End: 03-25-2023 Emergency department patient visit Peter Pritchard [facility] Start: 03-18-2023 End: 03-18-2023 ambulatory PHYSICIAN NO [facility] Start: 03-18-2023 End: 03-18-2023 Office outpatient visit 15 minutes Pattie Cazares ASSISTED LIVING ASSOCIATE Work Phone: [facility] [place] Procedures Date Procedure Procedure Detail Performing Clinician Start: 03-18-2023 Injection 1 tendon sheath/ligament aponeurosis Pattie Marnie Paris ASSISTED LIVING ASSOCIATE Work Phone: Start: 03-18-2023 Injection 1 tendon sheath/ligament aponeurosis Pattie Marnie Paris ASSISTED LIVING ASSOCIATE Work Phone: Start: 08-05-2021 Injection 1 tendon sheath/ligament aponeurosis Pattie Marnie Paris ASSISTED LIVING ASSOCIATE Work Phone: Start: 08-05-2021 Injection therapeuti c carpal tunnel Pattie Cazares ASSISTED LIVING ASSOCIATE Work Phone: Start: 06-06-2020 Injection therapeuti c carpal tunnel Jaclyn Cummings Work Phone: Start: 09-27-2019 Adult depression scr eening assessment Blanca [place] Start: 08-24-2018 Complete blood count with white cell differential, manual Blanca Cerna Work Phone: Start: 08-24-2018 Comprehensive metabo lic 2000 panel - Serum or Plasma Blanca Cerna Work Phone: Start: 08-24-2018 Lipid 1996 panel - S ambrose or Plasma Blanca GuerlineLilia Eryn Work Phone: Start: 08-24-2018 Thyrotropin [Units/v olume] in Serum or Plasma by Detection limit <= 0.005 mIU/L Blanca CunhaLilia Eryn Work Phone: Start: 08-13-2018 Microscopic observat ion [Identifier] in Cervix by Cyto stain Blanca [place] Cold knife cone biop sy of cervix No PCP None Plan of Treatment Date Care Activity Detail Author Start: 07-27-2024 Tetanus vaccination [facility] Start: 08-31-2023 Patient encounter procedure [facility] Start: 08-26-2023 History and physical examination, annual for health maintenance Wellness Visit [facility] Start: 03-27-2023 Influenza vaccination Sequenti al Influenza Vaccine (#1) [facility] Start: 08-26-2022 Patient encounter procedure [facility] Start: 08-23-2022 History and physical examination, annual for health maintenance Wellness Visit [facility] Start: 03-27-2022 Influenza vaccination Sequenti al Influenza Vaccine (#1) [facility] Start: 03-07-2022 PAPREPEAT, Provider: Mars Lane, Status: Pen, Time: 8:30 AM PAPREPEAT, Provider: Mars Lane, Status: Pen, Time: 8:30 AM [facility] Work Phone: Start: 08-23-2021 Patient encounter procedure ANNUAL, Provider: Mars Lane, Status: Pen, Time: 8:30 AM [facility] Work Phone: Start: 08-13-2021 Screening for malign ant neoplasm of cervix PAP SMEAR [facility] Start: 03-27-2021 Influenza vaccination Sequenti al Influenza Vaccine (#1) [facility] Start: 02-27-2021 End: 02-27-2021 Follow-up encounter 02/27/2021 Follow-Up Sports Medicine Jaclyn Cummings MD [address] [facility] [address] [place] [address] [phone] [facility] [place] Start: 02-19-2021 End: 02-19-2021 Admission to same day surgery center 02/19/2021 Surgery Jaclyn Cummings MD [address] [facility] [address] [place] [address] [phone] RELEASE CARPAL TUNNEL - RIGHT [facility] Periop Immunizations Immunization Date Immunization Notes Care Provider Fa [facility] 05-21-2020 influenza, injectabl e, quadrivalent, preservative free [facility] 05-21-2020 flu vacc [id number] 6 mos up,PF, sdv (FLUZONE QUAD) injection [facility] 08-17-2018 influenza, injectabl e, quadrivalent, contains preservative [facility] 08-17-2018 influenza, injectabl e, quadrivalent, preservative free [facility] 08-17-2018 flu vaccine qv 2018, 36mos up,,PF, sdv (FLUZONE QUAD) injection [facility] 11-25-2014 diphtheria, tetanus toxoids and acellular pertussis vaccine [facility] 11-25-2014 measles, mumps and r ubella virus vaccine [facility] Payers Date Payer Category Payer Worker's Compensation [id number] 2016 Medicaid [employer] MED[employer] xxxxxxxxxxx 2016-Present [id number] 2016 Medicaid [employer] MEDICA[employer] MEDICAID [id number] 2016-Present [id number] 2016 Medicaid [id number] 2016 Medicaid [id number] 2016 Unknown [id number] 1989 Unknown [id number] 2.16.840.1.618795.3.579.2. 900 1989 Unknown [id number] 2.16.840.1.920113.3.579.2. 903 1989 Unknown [id number] 2.16.840.1.066736.3.579.2. 356 1989 Unknown [id number] 2.16.840.1.508653.3.579.2. 356 1989 Unknown [id number] 2.16.840.1.851294.3.579.2. 356 1989 Unknown [id number] 2.16.840.1.554802.3.579.2. 356 1989 Unknown [id number] 2.16.840.1.509660.3.579.2. 356 1989 Unknown [id number] 2.16.840.1.202196.3.579.2. 356 1989 Unknown [id number] 2.16.840.1.212584.3.579.2. 356 1989 Unknown [id number] 2.16.840.1.225715.3.579.2. 903 1989 Unknown [id number] 2.16.840.1.790097.3.579.2. 903 1989 Unknown [id number] 2.16.840.1.015616.3.579.2. 903 1989 Unknown [id number] 2.16840.1.703380.3.579.2. 902 1989 Unknown [id number] 2.16.840.1.714066.3.579.2. 479 1989 Unknown [id number] 2.16.840.1.064438.3.579.2. 479 Unknown Social History Date Type Detail Facility Start: 06-03-2018 End: 08-17-2018 Tobacco smoking status [facility] Never smoker [facility] Start: 06-03-2018 Alcohol Comment mixed drinks/very rarely 3/4 yr [facility] Start: 1990 Sex Assigned At Not on file [facility] Start: 09-28-2019 End: 03-18-2023 Alcohol intake Current drinker of alcohol (finding) [facility] Start: 09-27-2019 End: 06-06-2020 History SDOH Social Connections [facility] Start: 09-27-2019 End: 06-06-2020 History SDOH Food Worry 1 [facility] Start: 07-26-2022 End: 08-05-2022 Exposure to SARS-CoV-2 (event) Not sure [facility] Start: 08-17-2018 End: 05-24-2020 Tobacco use and exposure [facility] used [facility] Start: 06-03-2018 Alcohol Comment mixed drinks/very rarely 3/[facility] Start: 09-27-2019 End: 06-06-2020 Never a smoker Never a smoker [facility] Tobacco smoking consumption unknown [facility] Start: 09-27-2019 End: 06-06-2020 Social connection and isolation panel [facility] Frequency of Communication with Friends and Family Not on file [facility] (I/We) worried wheth er (my/our) food would run out before (I/we) got money to buy more. Never true [facility] Start: 08-17-2018 Gender identity Identifies as female gender (finding) [facility] Start: 08-17-2018 Sexual orientation Heterosexual (finding) [facility] Clinical Notes 12-18-2020 to 03-18-2023 Pattie Cazares CNP - 03/18/2023 3:14 PM Pattie Quiros CNP - 03/18/2023 3:13 PM Pattie Quiros CNP - 03/18/2023 3:12 PM Fabiana Cazares CNP - 08/05/2022 2:15 PM EST [...] agrees to proceed. documented in this encounter [facility] 08-26-2022 Note 4 Date of Procedure: 08/26/2022 Pathologist: [facility], Cytology Date Reported: 09/08/2022 Date Received: [...] Range: Negative Slide(s) initially screened by a Neuro Ophthalmologist at [facility], [address] [place] [address] QC review performed at [facility], [address] [place] [address] Testing for high-risk (HR) type of human [...] verified by the Molecular Diagnostic Laboratory at [facility]. The lab is certified under the Clinical Laboratory Amendments of 1988 (CLIA 88) as qualified to perform high complexity clinical laboratory testing. This specimen has been analyzed by the [employer] System ([employer] an automated imaging and review system, which assists the laboratory in evaluating cells on ThinPrep Pap tests. Following automated imaging, selected anna from every slide were reviewed by a room clerk and/or pathologist. Electronically Signed Out By [facility], Cytology//LSM/JMD By the signature on this report, the individual or group listed as making the Final Interpretation/Diagnosis certifies that they have reviewed this case. Diagnostic interpretation performed at [facility] [address] [facility] [place] [address] Educational Note: Cervical cytology is a screening [...] Source of Specimen A: THINPREP PAP CERVICAL [facility] Department of Pathology [address] [place] [address] documented [facility] this encounter [facility] Diagnosis [...] is doing well on the control pills. [place] [address] [employer] Phone: History of Present illness NarrativePatient presents for colposcopy due to Pap smear showing ASCUS with positive high-risk HPV. She voices no complaints and is doing well.[place] [address] [place] Work Phone: History of Present illness NarrativePresents for annual exam. She voices no complaints and is doing well. Denies any bowel or bladder problems. Denies any breast problems. She is doing well with the control pills.[facility] Work Phone: Instructions * Patient Instructions* Blanca [...] Log into your personal health record on [email or web address] [employer] and enter Q823 in the Education box to learn more about Dizziness: Care Instructions. Current as of: April 18, 2018 Content Version: .20050091-6122 [employer]. Care instructions adapted under license by your healthcare professional. If you have questions about a medical condition or this instruction, always ask your healthcare professional. [employer] disclaims any warranty or liability for your [...] Log into your personal health record on [email or web address] and enter P834 in the Education box to learn more about Nikki Maneuver at Home for Vertigo: Exercises. Current as of: December 27, 2017 Content Version: .[id number] [employer]. Care instructions adapted under license by your healthcare professional. If you have questions about a medical condition or this instruction, always ask your healthcare professional. [employer] disclaims any warranty or liability for your [...] Log into your personal health record on [email or web address] and enter B784 in the Education box to learn more about Saline Nasal Washes: Care Instructions. Current as of: October 20, 2017 Content Version: 06.04-2018 [employer]. Care instructions adapted under license by your healthcare professional. If you have questions about a medical condition or this instruction, always ask your healthcare professional. [employer] disclaims any warranty or liability for your [...] look into their status. Customer Service/Billing Questions: [phone] [facility] Assistance: [phone] or [phone] Financial Assistance: [phone] or [phone] As of August 01, 2019 my schedule [...] care for yourself at home? Take an ybns-emu-xrjsedk pain medicine, such as acetaminophen (Tylenol), ibuprofen (Advil, Motrin),or naproxen (Aleve). Read and follow all instructions on the label. If the doctor prescribed antibiotics, take them as directed. Do not stop taking them just because you feel better. You need to take the full course of antibiotics. Be careful when taking thnw-wgr-vzdrrdm cold or flu medicines and Tylenol at [...] Log into your personal health record on [email or web address] and enter I933 in the Education box to learn more about Sinusitis: Care Instructions. Current as of: February 20, 2019 Content Version: 12.3 0394-5472 [employer]. Care instructions adapted under license by your healthcare professional. If you have questions about a medical condition or this instruction, always ask your healthcare professional. [employer] disclaims any warranty or liability for your [...] Log into your personal health record on [email or web address] and enter U908 in the Education box to learn more about Carpal Tunnel Syndrome: Exercises. Current as of: January 19, 2019 Content Version: 12.3 9087-6271 [employer]. Care instructions adapted under license by your healthcare professional. If you have questions about a medical condition or this instruction, always ask your healthcare professional. [employer] disclaims any warranty or liability for your [...] look into their status. Customer Service/Billing Questions: [phone] MyChart Assistance: [phone] or [phone] Financial Assistance: [phone] or [phone] As of August 01, 2019 my schedule [...] 9:22 AM EST Subjective Patient ID: Hilary Victor is a 27 y.o. female. Patient is here today to establish care. She is new to this provider and new to this practice. Has not had routine labs done ever. She has been followed closely by [facility] but has not had a PCP since [...] Commonly known as: ZOVIRAX flu vaccine qv 2017 (36mos up)(PF) sdv injection Commonly known as: FLUZONE QUAD levonorgestrel-ethinyl estradiol 0.15-0.03 mg per tablet Commonly known as: ALE Where to Get Your Medications These medications were sent to [facility] [address] [place] [address] [address] [facility] [address] [facility] [address] fluticasone 50 mcg/actuation nasal spray Allergies Allergen Reactions Other Environmental Penicillins Other (See Comments) Childhood reaction Past Medical History: Diagnosis Date Environmental allergies 1998 Genital herpes 2009 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 female. Sinusitis This [...] Fagan MD - 01/18/2020 9:25 AM EDT [facility] Physician [facility] - Neurology [address] [place] [address] [phone] Nerve Conduction & EMG Report Patient: Hilary Victor Sex: Female Date of : 1990 Visit [...] Neurophysiology, Neurology, Vascular Neurology and Sleep Medicine [facility] [place] [phone] Nota bene: Portions of this chart was created using [employer] voice recognition software. Occasional wrong-word or sound-like [...] Normal Normal Normal documented in this encounter* [place], Blanca Virk CNP - 05/21/2020 8:44 AM EDT Subjective Patient ID: Hilary Victor is a 29 y.o. female. Wrist pain: [...] left hand. 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 [...] 8:25 AM EST Subjective: Patient ID: Hilary Victor is a 29 y.o. female. HPI: Patient [...] on: 06/06/2020 8:28 AM by: JACLYN CUMMINGS [[id number]] Imaging Studies: No results found. Assessment: 1. Bilateral wrist pain 2. Bilateral hand numbness Plan: 1. Orders Placed This Encounter Procedures Carpal Tunnel Injection: Carpal Tunnel No follow-ups on file. * Jacyln Cummings MD - 06/06/2020 8:24 AM EST [...] 9:26 AM EST Subjective Patient ID: Hilary Victor is a 27 y.o. female. 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 Ralf/Dr Mars Quinn - ASC-US Pap smear, low-risk 06/05/2018 Ralf/Dr Masr Quinn Past Surgical History: Procedure Laterality Date [...] FoundDocuments on File Type Date Recorded Patient Tetryl Screen Operator Expl anation Advance Directives and Living Will Documents on File Type Date Recorded Patient Tetryl Screen Operator Expl anation Advance Directives and Living Will Documents on File Type Date Recorded Patient Tetryl Screen Operator Expl anation Advance Directives and Livin g Will 02/19/2021 6:11 AM Reason for Referral Status Reason Specialty Diagnoses / Procedures Referred By Contact Referred To Contact Authorized Neurology Diagnoses Right wrist pain Blanca Cerna, ASSISTED LIVING ASSOCIATE [address] [place] [address] [facility] Office Building, [address] [place] [address] Status Reason Specialty Diagnoses / Procedures Referred By Contact Referred To Contact Authorized Orthopedic Surgery Diagnoses Bilateral wrist pain Bilateral hand numbness Blanca Cerna CNP [address] [place] [address] Ryder Mayorga MD [address] [place] [address] Chief Complaint Patient is here for her [...] Closed Neurology Diagnoses Right wrist pain Blanca Cerna CNP [address] [place] [address] [facility] [address] Medical Office Building, [address] [place] [address] Reason Comments Follow-up both wrist, still pa inful denies injury x 2 years numbness and tingling has no feeling in her hands most of the day Reason Comments Pain Status Reason Specialty Diagnoses / Procedures Referred By Contact Referred To Contact Closed Orthopedic Surgery Diagnoses Bilateral wrist pain Bilateral hand numbness Blanca Cerna CNP [address] [place] [address] Ryder Mayorga MD [address] [place] [address] Reason Comments Dizziness Status Reason Specialty Diagnoses / Procedures Referre d By Contact Referred To Contact Closed Neurology Diagnoses Bilateral hand pain Bilateral hand numbness Pattie Cazares, ASSISTED LIVING ASSOCIATE [address] [address] Enrique Fagan MD [address] [address] Assessment & Plan Note - Blanca Cerna [...] DATE CREATED AUTHOR AUTHOR'S ORGANIZ ATION 09/08/2018 [facility] DATE CREATED AUTHOR AUTHOR'S ORGANIZ ATION 02/15/2019 [facility] DATE CREATED AUTHOR AUTHOR'S ORGANIZ ATION 02/16/2021 [facility] DATE CREATED AUTHOR AUTHOR'S ORGANIZ ATION 02/22/2021 [facility] DATE CREATED AUTHOR AUTHOR'S ORGANIZ ATION 08/26/2022 [facility] DATE CREATED AUTHOR AUTHOR'S ORGANIZ ATION 09/08/2022 [facility] DATE CREATED AUTHOR AUTHOR'S ORGANIZ ATION 03/20/2023 [facility] DATE CREATED AUTHOR AUTHOR'S ORGANIZ ATION 06/10/2023 [facility] DATE CREATED AUTHOR AUTHOR'S ORGANIZ ATION 09/23/2023 [facility] Care Teams (unrecognized sec tion and content) Fire Prevention [employer] Captain Relationship Specialty Start Date End Date No, Physician [facility] PCP - General 06/24/22 [employer] Captain Relationship Specialty Start Date End Date No, Physician [facility] PCP - General 06/24/22 <item><item> Privacy [...] BE BASED ON THE PRIMARY CLINICAL RECORDS. [facility] [employer] [facility]. provides no warranty or guarantee of the accuracy or completeness of information in this document.
== END | disposition home or self-care (01) ==
LOC: LABSPEC 16:49
PROVIDERS: Referring Provider Obstetrics & Gynecology; Visit Provider Obstetrics & Gynecology
DX: N89.8 Other specified noninflammatory disorders of vagina (principal)
CPT/HCPCS: 87070; 87205

== ENCOUNTER → 2023-12-31 | Outpatient (CLI) | payer MEDICAID, SELFPAY ==
[2023-12-31 14:11] LABS: Absolute Neutrophil Count 5.7 X10^3/uL (2.0-7.7); Basophil# 0.02 X10^3/uL; Basophil% 0.3 % (0-1); Eosinophil# 0.08 X10^3/uL; Hematocrit 31.3 % (37-47); Hemoglobin 10.3 g/dL (12.0-15.0); Lymphocyte % 20.2 % (19-41); Mean Corp Hgb Conc 32.9 g/dL (32-36); Mean Corpuscular Hgb 29.6 pg (27.0-32.0); Mean Corpuscular Volume 89.9 fL (81-99); Mean Platelet Vol. 9.2 fl (6.2-12.0); Monocyte# 0.51 X10^3/uL; Monocyte% 6.4 % (0-10); NRBC Flagged by Analyzer 0 % (0-5); Neutrophil % 71.7 % (47-70); Platelet Count 262 K/mm3 (150-450); RBC Distribution Width SD 42.3 fl (35.1-43.9); Red Blood Count 3.48 M/mm3 (4.2-5.4); White Blood Count 7.9 K/mm3 (4.4-11.0)
[2023-12-31 14:13] LABS: Glucose Challenge Gest 1H 50g 195 mg/dL (70-140)
[2023-12-31 14:47] LABS: HIV - WCH Non-Reactive (Nonreactive); Syphilis Antibodies Non-reactive
== END | disposition home or self-care (01) ==
LOC: PAVLAB 13:36
PROVIDERS: Referring Provider Nurse Practitioner Women's Health; Visit Provider Nurse Practitioner Women's Health
DX: Z34.90 Encounter for supervision of normal pregnancy, unspecified, unspecified trimester (principal)
CPT/HCPCS: 36415; 82950; 85025; 86703; 86780

== ENCOUNTER 2024-01-20 12:22 | Outpatient (CLI) | payer MEDICAID, SELFPAY ==
[2024-01-20 12:52] VITALS: BP 125/71; PULSE 90; RESP 16; TEMP 36.6
[2024-01-20 13:47] VITALS: BMI 29.4
--- NOTE | 2024-01-20 16:46 | US_ITS ---
STUDY: OBSTETRICAL ULTRASOUND - BIOPHYSICAL PROFILE REASON FOR EXAM: Female, 33 years old variable LMP: June 21, 2023 PRIOR ULTRASOUND: None. TECHNIQUE: Transabdominal TECHNICAL QUALITY: Adequate. FINDINGS: There is a single intrauterine fetus. The fetus is in a cephalic presentation. There is demonstrated cardiac activity with a heart rate of 141 bpm. There is a normal amniotic fluid volume. The largest amniotic fluid pocket measures 4.1 cm. The amniotic fluid index (SERGEY) is 11.2 cm. The placenta is posterior in location and is not low lying. There are Grade 1 placental changes. Age by LMP: 30 weeks, 3 days. KARLENE by LMP: March 27, 2024. BIOPHYSICAL PROFILE: Breathing Movements (FBM): 2 Gross Body Movements (GBM): 2 Tone (FT): 2 Amniotic Fluid Volume (AFV): 2 TOTAL SCORE: 8 / 8 US/Biophysical Prof W/O Non Stres IMPRESSION: Normal biophysical profile of 8/8. Electronically Signed: Dustin Chavez MD at 19:58 EDT ,
--- NOTE | 2024-01-20 16:47 | OB.TRI.PN ---
Progress Notes Date of Service: 01/20/24 Progress Note: Patient presents for triage evaluation secondary to abdominal trauma FHT: 140 Moderate variability reactive isolated mild variable deceleration overall category I tracing [place]: occasional irregular Contractions Assessment and plan: bpp 8/8 prolonged monitoring 4 hours for abdominal trauma, Reactive NST, reassuring maternal and status patient discharged to home to follow-up as scheduled. See problem list details for additional plan information. Charges/Coding Procedures Urinary/Genital 52xxx-59xxx: 33931-04 non-stress test Interp
== END 2024-01-20 15:00 | disposition home or self-care (01) ==
LOC: WPOUT 12:30 → WP 12:30
PROVIDERS: Referring Provider Obstetrics & Gynecology; Visit Provider Obstetrics & Gynecology
DX: O47.9 False labor, unspecified (principal); Z3A.00 Weeks of gestation of pregnancy not specified
CPT/HCPCS: 59025; 59050; 76819; 99221; G0378

== ENCOUNTER → 2024-03-03 | Outpatient (CLI) | payer MEDICAID, SELFPAY | END | disposition home or self-care (01) | LOC: LABSPEC 14:28 | PROVIDERS: Referring Provider Obstetrics & Gynecology; Visit Provider Obstetrics & Gynecology | DX: O09.92 Supervision of high risk pregnancy, unspecified, second trimester (principal); Z3A.00 Weeks of gestation of pregnancy not specified | CPT/HCPCS: 87081 ==

== ENCOUNTER 2024-03-05 08:39 | Inpatient (IN) | payer MEDICAID, SELFPAY ==
[2024-03-05] VITALS (37 sets, daily range): BP systolic 91–153; BP diastolic 50–93; PULSE 65–99; RESP 14–17; TEMP 36.5–37.1; O2SAT 98–100; BMI 30.7
[2024-03-05 08:35] LABS: ROM Internal Control Test YES-OK TO RESULT pt. (Internal QC)
[2024-03-05 08:36] LABS: ROM Patient Test POSITIVE (Negative); Record Kit Lot#, ROM+ K1866
[2024-03-05] MEDS: Lactated Ringers 1,000 ML 50 ML IV (09:46)
[2024-03-05] MEDS: Vancomycin HCl 1,500 MG in 0.9% Normal Saline (500mL Bag) 500 ML 150 MG IV (09:46)
--- NOTE | 2024-03-05 09:52 | HP.PCM.OB_ITS ---
HPI - General General Date of Admission: 03/05/24 HPI Narrative GAURAV ISLAS, is a 33 F who presents at 36.6 with leaking of fluid at 0600. denies vaginal bleeding, occ ctx. good fm. Maternal Data Information KARLENE Calculator Estimated Delivery Date Method Current WG Current Estimate 03/27/24 LMP (Certain) 36w 6d PFSH PFSH Medical History (Updated 03/05/24 @ 08:38 by Blanca Marcos) HPV (human papilloma virus) infection Stillborn, normal Anxiety Headache Home Medications ?Medication ?Instructions ?Recorded ?Last Taken ?Type PNV 153-FA 400 mcg-om3 35 mg-dha 1 tab PO DAILY 08/04/23 03/04/24 12:00 History 25 mg-epa 5 mg-fish oil chew tablet flash glucose scanning reader #1 ea 12/31/23 Unknown Rx (FreeStyle Patrick 2 Coggon) flash glucose sensor (FreeStyle #1 ea 12/31/23 Unknown Rx Patrick 2 Sensor kit) sertraline 25 mg tablet (Zoloft) 25 mg PO DAILY #30 tabs 12/31/23 03/04/24 22:00 Rx valacyclovir 500 mg tablet 500 mg PO DAILY #30 tabs 03/03/24 03/04/24 22:00 Rx (Valtrex) Allergy/AdvReac Type Severity Reaction Status Date / Time Penicillins Allergy Unknown PT UNSURE Verified 03/05/24 07:56 OF REACTION Family History Son ADHD Tethered cord Scoliosis Autism Double outlet right ventricle Surgical History (Updated 03/05/24 @ 08:38 by Blanca Marcos) History of surgery History of gynecologic surgery [place] teeth extracted H/O dilation and curettage Social History adopted: No household members: significant other and children number of children: 2 current occupational status: employed 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 current occupational exposures/hazards: Yes (PPE is worn and prevented from some rooms when ) pets and animals: Yes (avoid litterbox) pets and animals: cat(s) and dog(s) history of recent travel: No sexually active: Yes Smoking Status: Never smoker alcohol intake: current alcohol intake frequency: a few times a month details: not while substance use type: does not use diet: other well-balanced diet: daily or most days caffeine: No eating out: 1-3 times/week during the past year weight has: remained stable what type of physical activity do you participate in: none richar/druze: None seatbelt use: always do you feel safe at home: Yes additional social history: Fianc?- Adrian History 5 Elective abortions Hx Para 3 Spontaneous abortions 1 Hx # Term Pregnancies Ectopic pregnancies 1 Hx # Pregnancies Multiple births # of living children 2 Past Pregnancies Del. Date Name GA/Weeks Outcome Route Bth Weight Gen Labor Lgth Anesthesia Del Locatn Provider FOB Unknown February 2013 ectopic 09/03/10 Av 38 live - full term vacuum 6#8oz Male epidural [place] [facility] 11/24/14 Demetri 39 live - full term 7#15oz Female ep idural Lisa Dominguez 02/10/19 Donna 22 still Delivery Date: Last Updated by: Vanessa Delarosa methotrexate Delivery Date: 09/03/10 Last Updated by: Vanessa Delarosa iol, double outlet right ventrical, kidney issues, tethered cord, Delivery Date: 11/24/14 Last Updated by: Vanessa Delarosa iol elective Delivery Date: 02/10/19 Last Updated by: Vanessa Delarosa iol, demise NF Visit Details Expected Delivery Route/Plan Labor Preferences- CB/BF classes: no labor support person: [] labor intervention preferences: [] pain management options preferred: [] cut cord/dad catch: [] : [] PP control planned: [] discussed possible routes of delivery and associated risks: [] special requests: [] Plans Covid status: [] Flu vaccine: declined Tdap vaccine: [] Rhogam: [] LARC form signed: yes Problem list reviewed and updated with the most current plan of care details and appropriate orders placed. Relevant counseling for the gestational age provided. Continue routine care and follow up unless otherwise noted in visit notes/problem list details OB Flowsheet Initial Weight: Not Recorded Date -?-?-?-?-?-?-?-?-?-?-?-?- EGA Weight BP Urine Prot -?-?-?-?-?-?-?-?-?-?-?-?- Glucose FHR FuHt Pres Dilation -?-?-?-?-?-?-?-?-?-?-?-?- Effaced St Visit Note 08/14/23 -?-?-?-?-?-?-?-?-?-?-?-?- 7w 5d 143 lb 4 oz 119/77 -?-?-?-?-?-?-?-?-?-?-?-?- 160 -?-?-?-?-?-?-?-?-?-?-?-?- kw-CRL cons with dates. would like to think about NIPT. PAP next visit. MFM consult for Hx son's CHF 08/27/23 -?-?-?-?-?-?-?-?-?-?-?-?- 9w 4d 141 lb 6 oz 115/79 -?-?-?-?-?-?-?-?-?-?-?-?- 153 -?-?-?-?-?-?-?-?-?-?-?-?- KW- Work in for VB. had one episode of bleeding this am-no cramping. FH and movement noted on US. Will repeat pap next visit. Has MFM consult in 3 weeks. 09/09/23 -?-?-?-?-?-?-?-?-?-?-?-?- 11w 3d 143 lb 110/72 Negative -?-?-?-?-?-?-?-?-?-?-?-?- Negative 157 -?-?-?-?-?-?-?-?-?-?-?-?- MH-No further bl eeding. US w/live IUP. Will do PN labs today. 10/09/23 -?-?-?-?-?-?-?-?-?-?-?-?- 15w 5d 144 lb 6 oz 106/67 Nega tive -?-?-?-?-?-?-?-?-?-?-?--?- Negative 150 -?-?-?-?-?-?-?-?-?-?-?-?- Sm- no vb co oriana e itching culture sent. 11/02/23 -?-?-?-?-?-?-?-?-?-?-?-?- 19w 1d 146 lb 4 oz 112/72 Nega tive -?-?-?-?-?-?-?-?-?-?-?-?- Negative 139 -?-?-?-?-?-?-?-?-?-?-?-?- MH-No VB. Fabien michel movement. Some lower right pelvic pain. ?RL pain vs ovarian cyst. US tomorrow. FOB no longer involved. 12/03/23 -?-?-?-?-?-?-?-?-?-?-?-?- 23w 4d 148 lb 2 oz 114/72 Nega tive -?-?-?-?-?-?-?-?-?-?-?-?- Negative 154 -?-?-?-?-?-?-?-?-?-?-?-?- MH-No VB, LOF. G ood FM. Feeling much anxiety:her most significant support person now with pancreatic cancer(son's grandma). Her son has complex medical needs and will have open heart surgery next month in [place]. Her employer will not pay her during that time. She is single parent. Offered med/declines. Gave info for [facility] 12/31/23 -?-?-?-?-?-?-?-?-?-?-?-?- 27w 4d 150 lb 134/87 Negative -?-?-?-?-?-?-?-?-?-?-?-?- Negative 145 28 -?-?-?-?-?-?-?-?-?-?-?-?- JV- pt failed he r 1 hr with a 195. She is tearful today stating that she is a single mom and her son needs open heart surgery. work requires her to be on her feet 8 hours a day. She likely has extreme stress that is not helping her glucose levels. Starting zoloft and recommend to apply for disability for rest of . long discussion today (30 min) 01/14/24 -?-?-?-?-?-?-?-?-?-?-?-?- 29w 4d 151 lb 8 oz 119/77 Nega tive -?-?-?-?-?-?-?-?-?-?-?-?- Negative 138 32 -?-?-?-?-?-?-?-?-?-?-?-?- JV- glucose leve ls are 99% normal. will work on some healthy choices. Son's heart surgery is february 11. Yulia is making her a little dizzy but she states that she is feeling much better already. her dissability was approved. 01/26/24 -?-?-?-?-?-?-?-?-?-?-?-?- 31w 2d 153 lb 112/80 Negative -?-?-?-?-?-?-?-?-?-?-?-?- Negative 145 32 -?-?-?-?-?-?-?-?-?--?-?-?- MH-No VB, LOF. G ood FM. All fastings normal. Her AM 2 hr is elevated but eats cereal daily-discussed other options. 02/09/24 -?-?-?-?-?-?-?-?-?-?-?-?- 33w 2d 153 lb 4 oz 135/87 Nega tive -?-?-?-?-?-?-?-?-?-?-?-?- Negative 135 33 Cephalic 1 -?-?-?-?-?-?-?-?-?-?-?-?- 60 -1 KW- no vb/ lof. having regular christopher monson contractions. son is having open heart surgery thurs. requesting vaginal exam for reassurance 02/16/24 -?-?-?-?-?-?-?-?-?-?-?-?- 34w 2d 156 lb 129/83 Negative -?-?-?-?-?-?-?-?-?-?-?-?- Negative 150 -?-?-?-?-?-?-?-?-?-?-?-?- MHNST only react ramos. Occa Bh CTX 02/23/24 -?-?-?-?-?-?-?-?-?-?-?-?- 35w 2d 158 lb 2 oz 130/82 Nega tive -?-?-?-?-?-?-?-?-?-?-?-?- Negative 140 35 -?-?-?-?-?-?-?-?-?-?-?-?- MH-No Vb, LOF. G ood FM Reactive NST. Glucose readings >90% nl 03/03/24 -?-?-?-?-?-?-?-?-?-?-?-?- 36w 4d 157 lb 8 oz 132/73 Nega tive -?-?-?-?-?-?-?-?-?-?-?-?- Negative 150 36 Cephalic 0 .05 0.5 -?-?-?-?-?-?-?-?-?-?-?-?- -2 JV- gluc ose log overall normal. one outlier of 180 after breakfast. Valtrex started. GBS today. NST reactive. JV- glucose log overall norm al. one outlier of 180 after breakfast. Valtrex started. GBS today. NST reactive. unable to get finger tunneled far enough to head ROS Cardiovascular Cardiovascular: Denies abdominal pain, chest pain, diaphoresis or dyspnea Respiratory/Chest Respiratory/Chest: Denies change in mental status, chest congestion, chest tightness, cough, shortness of breath at rest, shortness of breath with exertion, breast mass, breast pain, breast skin changes, breast swelling, change in breast shape or nipple discharge Genitourinary Genitourinary: Reports change in urinary stream Musculoskeletal Musculoskeletal: Reports none Integumentary Integumentary: Reports none Neurologic Neurologic: Reports none Psychiatric Psychiatric: Reports none Endocrine Endocrinology: Reports none Hematologic/Lymphatic Hematologic/Lymphatic: Reports none Allergic/Immunologic Allergic/Immunologic: Reports none Vital Signs Vital Signs Vital Signs: 03/05/24 07:46 03/05/24 07:46 03/05/24 07:46 Temperature Pulse Rate 74 Respiratory Rate Blood Pressure 151/93 H BP Systolic 151 BP Diastolic 93 Pulse Ox 100 03/05/24 07:47 03/05/24 07:47 03/05/24 07:47 Temperature Pulse Rate 71 Respiratory Rate 15 Blood Pressure 138/83 H BP Systolic 138 BP Diastolic 83 Pulse Ox 03/05/24 07:47 Temperature 98.0 F Pulse Rate Respiratory Rate Blood Pressure BP Systolic BP Diastolic Pulse Ox Weight Weight: 157 lb Body Mass Index (BMI) 30.7 Physical Exam Const alert, oriented x3 and no apparent distress General Appearance: cooperative, comfortable and well kempt Orientation / Consciousness: awake and oriented to person Exam Limitations: no limitations HEENT normocephalic Neck full ROM Chest inspection of chest normal Resp normal respiratory effort, normal air movement and no retractions Effort and Inspection: able to speak in complete sentences and symmetric chest movement Cardio regular rate Peripheral Pulses: pulses 2+ throughout GI normal to inspection, nondistended, normoactive bowel sounds Inspection: gravid no CVA tenderness and appearance of the vagina normal External Female Exam: normal appearance of the urethra; Negative for external lesion OB / External & Speculum: external exam normal Manual OB Exam: estimated gestational size appropriate and presentation cephalic Uterus Palpation: Negative for uterus tender Extremity normal to inspection Skin no rashes or lesions noted Neuro deep tendon reflexes 2+ bilaterally and gait normal Motor Exam: strength 5/5 throughout and clonus absent Psych Activity / Motor Behavior: appropriate eye contact Speech: normal speech Labs Labs Labs: Blood Type A POSITIVE Antibody Screen NEGATIVE Hct 31.3 % (37-47) L Hgb 10.3 g/dL (12.0-15.0) L Syphilis Total Ab Non-reactive Rubella IgG Antibody Reactive (Nonreactive) Hep Bs Antigen Non-Reactive (Nonreactive) Hepatitis C Antibody Non-Reactive (Nonreactive) Chlamydia DNA ([facility]) Negative (Negative) N.gonorrhoeae DNA ([facility]) Negative (Negative) HIV 1&2 Antibody Non-Reactive (Nonreactive) Glucose 1 Hr 50 gm 195 mg/dL (70-140) H
--- NOTE | 2024-03-05 09:52 | PCM.HP.OB ---
HPI - General General Date of Admission: 03/05/24 HPI Narrative GAURAV ISLAS, is a 33 F who presents at 36.6 with leaking of fluid at 0600. denies vaginal bleeding, occ ctx. good fm. BP mild elevation upon initial assessment from nursing. Maternal Data Information KARLENE Calculator Estimated Delivery Date Method Current WG Current Estimate 03/27/24 LMP (Certain) 36w 6d PFSH PFSH Medical History (Updated 03/05/24 @ 10:01 by Alia Baez CNM) HPV (human papilloma virus) infection Stillborn, normal Anxiety Headache Home Medications ?Medication ?Instructions ?Recorded ?Last Taken ?Type PNV 153-FA 400 mcg-om3 35 mg-dha 1 tab PO DAILY 08/04/23 03/04/24 12:00 History 25 mg-epa 5 mg-fish oil chew tablet flash glucose scanning reader #1 ea 12/31/23 Unknown Rx (FreeStyle Patrick 2 Maynard) flash glucose sensor (FreeStyle #1 ea 12/31/23 Unknown Rx Patrick 2 Sensor kit) sertraline 25 mg tablet (Zoloft) 25 mg PO DAILY #30 tabs 12/31/23 03/04/24 22:00 Rx valacyclovir 500 mg tablet 500 mg PO DAILY #30 tabs 03/03/24 03/04/24 22:00 Rx (Valtrex) Allergy/AdvReac Type Severity Reaction Status Date / Time Penicillins Allergy Unknown PT UNSURE Verified 03/05/24 07:56 OF REACTION Family History Son ADHD Tethered cord Scoliosis Autism Double outlet right ventricle Surgical History (Updated 03/05/24 @ 08:38 by Blanca Marcos) History of surgery History of gynecologic surgery [place] teeth extracted H/O dilation and curettage Social History adopted: No household members: significant other and children number of children: 2 current occupational status: employed 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 current occupational exposures/hazards: Yes (PPE is worn and prevented from some rooms when ) pets and animals: Yes (avoid litterbox) pets and animals: cat(s) and dog(s) history of recent travel: No sexually active: Yes Smoking Status: Never smoker alcohol intake: current alcohol intake frequency: a few times a month details: not while substance use type: does not use diet: other well-balanced diet: daily or most days caffeine: No eating out: 1-3 times/week during the past year weight has: remained stable what type of physical activity do you participate in: none richar/yarsani: None seatbelt use: always do you feel safe at home: Yes additional social history: Fianc?- Adrian History 5 Elective abortions Hx Para 3 Spontaneous abortions 1 Hx # Term Pregnancies Ectopic pregnancies 1 Hx # Pregnancies Multiple births # of living children 2 Past Pregnancies Del. Date Name GA/Weeks Outcome Route Bth Weight Gen Labor Lgth Anesthesia Del Locatn Provider FOB Unknown February 2013 ectopic 09/03/10 Av 38 live - full term vacuum 6#8oz Male epidural Venancio Soler 11/24/14 Demetri 39 live - full term 7#15oz Female epidural Lisa Alberto 02/10/19 Donna 22 still Delivery Date: Last Updated by: Vanessa Delarosa methotrexate Delivery Date: 09/03/10 Last Updated by: Vanessa Delarosa iol, double outlet right ventrical, kidney issues, tethered cord, Delivery Date: 11/24/14 Last Updated by: Vanessa Delarosa iol elective Delivery Date: 02/10/19 Last Updated by: Vanessa Delarosa iol, demise NFHT Visit Details Expected Delivery Route/Plan Labor Preferences- CB/BF classes: no labor support person: [] labor intervention preferences: [] pain management options preferred: [] cut cord/dad catch: [] : [] PP control planned: [] discussed possible routes of delivery and associated risks: [] special requests: [] Plans Covid status: [] Flu vaccine: declined Tdap vaccine: [] Rhogam: [] LARC form signed: yes Problem list reviewed and updated with the most current plan of care details and appropriate orders placed. Relevant counseling for the gestational age provided. Continue routine care and follow up unless otherwise noted in visit notes/problem list details OB Flowsheet Initial Weight: Not Recorded Date <del>?</del> EGA Weight BP Urine Prot <del>?</del> Glucose FHR FuHt Pres Dilation <del>?</del> Effaced St Visit Note 08/14/23 <del>?</del> 7w 5d 143 lb 4 oz 119/77 <del>?</del> 160 <del>?</del> kw-CRL cons with dates. would like to think about NIPT. PAP next visit. MFM consult for Hx son's CHF 08/27/23 <del>?</del> 9w 4d 141 lb 6 oz 115/79 <del>?</del> 153 <del>?</del> KW- Work in for VB. had one episode of bleeding this am-no cramping. FH and movement noted on US. Will repeat pap next visit. Has MFM consult in 3 weeks. 09/09/23 <del>?</del> 11w 3d 143 lb 110/72 Negative <del>?</del> Negative 157 <del>?</del> MH-No further bleeding. US w/live IUP. Will do PN labs today. 10/09/23 <del>?</del> 15w 5d 144 lb 6 oz 106/67 Negative <del>?</del> Negative 150 <del>?</del> Sm- no vb co some itching culture sent. 11/02/23 <del>?</del> 19w 1d 146 lb 4 oz 112/72 Negative <del>?</del> Negative 139 <del>?</del> MH-No VB. Feeling movement. Some lower right pelvic pain. ?RL pain vs ovarian cyst. US tomorrow. FOB no longer involved. 12/03/23 <del>?</del> 23w 4d 148 lb 2 oz 114/72 Negative <del>?</del> Negative 154 <del>?</del> MH-No VB, LOF. Good FM. Feeling much anxiety:her most significant support person now with pancreatic cancer(son's grandma). Her son has complex medical needs and will have open heart surgery next month in [place]. Her employer will not pay her during that time. She is single parent. Offered med/declines. Gave info for [facility] 12/31/23 <del>?</del> 27w 4d 150 lb 134/87 Negative <del>?</del> Negative 145 28 <del>?</del> JV- pt failed her 1 hr with a 195. She is tearful today stating that she is a single mom and her son needs open heart surgery. work requires her to be on her feet 8 hours a day. She likely has extreme stress that is not helping her glucose levels. Starting zoloft and recommend to apply for disability for rest of . long discussion today (30 min) 01/14/24 <del>?</del> 29w 4d 151 lb 8 oz 119/77 Negative <del>?</del> Negative 138 32 <del>?</del> JV- glucose levels are 99% normal. will work on some healthy choices. Son's heart surgery is february 11. Zoloft is making her a little dizzy but she states that she is feeling much better already. her dissability was approved. 01/26/24 <del>?</del> 31w 2d 153 lb 112/80 Negative <del>?</del> Negative 145 32 <del>?</del> MH-No VB, LOF. Good FM. All fastings normal. Her AM 2 hr is elevated but eats cereal daily-discussed other options. 02/09/24 <del>?</del> 33w 2d 153 lb 4 oz 135/87 Negative <del>?</del> Negative 135 33 Cephalic 1 <del>?</del> 60 -1 KW- no vb/lof. having regular christopher monson contractions. son is having open heart surgery thurs. requesting vaginal exam for reassurance 02/16/24 <del>?</del> 34w 2d 156 lb 129/83 Negative <del>?</del> Negative 150 <del>?</del> MHNST only reactive. Occa Bh CTX 02/23/24 <del>?</del> 35w 2d 158 lb 2 oz 130/82 Negative <del>?</del> Negative 140 35 <del>?</del> MH-No Vb, LOF. Good FM Reactive NST. Glucose readings >90% nl 03/03/24 <del>?</del> 36w 4d 157 lb 8 oz 132/73 Negative <del>?</del> Negative 150 36 Cephalic 0.05 0.5 <del>?</del> -2 JV- glucose log overall normal. one outlier of 180 after breakfast. Valtrex started. GBS today. NST reactive. JV- glucose log overall normal. one outlier of 180 after breakfast. Valtrex started. GBS today. NST reactive. unable to get finger tunneled far enough to head NST FHR Rate Baby A Baseline: 140 Variability:: Moderate Accelerations:: 15 x 15 Decelerations:: None NST Reactive:: Yes FHR Category:: Category I Uterine Activity:: q5-7 minutes ROS Cardiovascular Cardiovascular: Denies abdominal pain, chest pain, diaphoresis or dyspnea Respiratory/Chest Respiratory/Chest: Denies change in mental status, chest congestion, chest tightness, cough, shortness of breath at rest, shortness of breath with exertion, breast mass, breast pain, breast skin changes, breast swelling, change in breast shape or nipple discharge Genitourinary Genitourinary: Reports change in urinary stream Musculoskeletal Musculoskeletal: Reports none Integumentary Integumentary: Reports none Neurologic Neurologic: Reports none Psychiatric Psychiatric: Reports none Endocrine Endocrinology: Reports none Hematologic/Lymphatic Hematologic/Lymphatic: Reports none Allergic/Immunologic Allergic/Immunologic: Reports none Vital Signs Vital Signs Vital Signs: 03/05/24 07:46 03/05/24 07:46 03/05/24 07:46 Temperature Pulse Rate 74 Respiratory Rate Blood Pressure 151/93 H BP Systolic 151 BP Diastolic 93 Pulse Ox 100 03/05/24 07:47 03/05/24 07:47 03/05/24 07:47 Temperature Pulse Rate 71 Respiratory Rate 15 Blood Pressure 138/83 H BP Systolic 138 BP Diastolic 83 Pulse Ox 03/05/24 07:47 Temperature 98.0 F Pulse Rate Respiratory Rate Blood Pressure BP Systolic BP Diastolic Pulse Ox Weight Weight: 157 lb Body Mass Index (BMI) 30.7 Physical Exam Const alert, oriented x3 and no apparent distress General Appearance: cooperative, comfortable and well kempt Orientation / Consciousness: awake and oriented to person Exam Limitations: no limitations HEENT normocephalic Neck full ROM Chest inspection of chest normal Resp normal respiratory effort, normal air movement and no retractions Effort and Inspection: able to speak in complete sentences and symmetric chest movement Cardio regular rate Peripheral Pulses: pulses 2+ throughout GI normal to inspection, nondistended, normoactive bowel sounds Inspection: gravid no CVA tenderness and appearance of the vagina normal External Female Exam: normal appearance of the urethra; Negative for external lesion OB / External & Speculum: external exam normal Manual OB Exam: estimated gestational size appropriate and presentation cephalic Uterus Palpation: Negative for uterus tender Extremity normal to inspection Skin no rashes or lesions noted Neuro deep tendon reflexes 2+ bilaterally and gait normal Motor Exam: strength 5/5 throughout and clonus absent Psych Activity / Motor Behavior: appropriate eye contact Speech: normal speech Labs Labs Labs: Blood Type A POSITIVE Antibody Screen NEGATIVE Hct 36.9 % (37-47) L Hgb 12.4 g/dL (12.0-15.0) Syphilis Total Ab Non-reactive Rubella IgG Antibody Reactive (Nonreactive) Hep Bs Antigen Non-Reactive (Nonreactive) Hepatitis C Antibody Non-Reactive (Nonreactive) Chlamydia DNA ([facility]) Negative (Negative) N.gonorrhoeae DNA ([facility]) Negative (Negative) HIV 1&2 Antibody Non-Reactive (Nonreactive) Glucose 1 Hr 50 gm 195 mg/dL (70-140) H Assessment & Plan (1) premature rupture of membranes (PPROM) with onset of labor within 24 hours of rupture in second trimester, antepartum: COMMENT: ROM at 0600 8/10 with cervical change from office at 2cm/70% 36.6 weeks vanco for GBS unknown PCN allergic. plan augmentation with pitocin if unchanged in 2 hours from previous exam (2) Gestational diabetes: QUALIFIERS: Gestational diabetes mellitus control: diet-controlled Trimester: third trimester Qualified Code(s): O24.410 - Gestational diabetes mellitus in , diet controlled COMMENT: Good control for 2 hr pp but fastings elevated/always has cereal. reviewed diet. Growth US Q4w, testing weekly at 32 wk and daily kick counts PLAN: diabetic protocol. currently well controlled. (3) Emotional crisis as acute reaction to exceptional (gross) stress: COMMENT: Feeling more in control, no longer working. Preparing for son's surgery:02/11/24 open heart complete, did well. Home (4) Prior with demise: COMMENT: 22wks girl Donna. Pt may call when near 22 wk for FHT checks. Weekly NST and daily kick cts at 32 wk. growth Q4wk (5) History of herpes genitalis: COMMENT: Valtrex at 36 weeks PLAN: no lesions noted. (6) FH: congenital heart problem: COMMENT: Son-dbl outlet right ventricle/He will be having cardiac surgery again in December 2023. MFM consult- echo 22-24 weeks: normal growth Q4 weeks, testing at 32 weeks, (7) Supervision of high-risk : QUALIFIERS: Trimester: second trimester Qualified Code(s): O09.92 - Supervision of high risk , unspecified, second trimester COMMENT: PRR, , KARLENE 03/27/24, PC Demetri Ley, (Donna 22wk demise) FOB Adrian not involved Support system is poor/FOB no longer involved and her main support person has pancreatic cancer PLAN: Aunt present for labor support. (8) : QUALIFIERS: Weeks of gestation: 36 weeks Qualified Code(s): Z3A.36 - 36 weeks gestation of COMMENT: nl anatomy, declines genetic & carrier testing, nl nuchal translucency PLAN: Plan Patient presents PPROM with contractions, plan expectant management for , pitocin PRN if needed. Mild elevated BP with headache since . PEC labs obtained. BP not in severe range. Pain management: plans epidural. GBS positive plan IV Vanco. Management of any complications: none I have reviewed the [facility] and made any clinically relevant updates. Dr. Caro updated on admission, exam and agrees with poc.
[2024-03-05 09:59] LABS: Absolute Lymphocyte Count 1.73 X10^3/uL (0.83-4.51); Absolute Neutrophil Count 5.5 X10^3/uL (2.0-7.7); Basophil# 0.03 X10^3/uL; Basophil% 0.4 % (0-1); Eosinophil# 0.06 X10^3/uL; Eosinophils% 0.8 % (0-5); Hematocrit 36.9 % (37-47); Hemoglobin 12.4 g/dL (12.0-15.0); Lymphocyte # 1.73 X10^3/ul (0.83-4.51); Mean Corp Hgb Conc 33.6 g/dL (32-36); Mean Corpuscular Volume 86.2 fL (81-99); Mean Platelet Vol. 11.3 fl (6.2-12.0); Monocyte# 0.48 X10^3/uL; Monocyte% 6.1 % (0-10); NRBC Flagged by Analyzer 0 % (0-5); Neutrophil # 5.53 X10^3/uL (2.7-7.7); Neutrophil % 70.2 % (47-70); Platelet Count 230 K/mm3 (150-450); RBC Distribution Width CV 13.2 % (11.6-14.6); Red Blood Count 4.28 M/mm3 (4.2-5.4); White Blood Count 7.9 K/mm3 (4.4-11.0)
[2024-03-05 10:15] LABS: AST(SGOT) 21 U/L (15-37); Alanine Aminotransfer ALT/SGPT 20 U/L (13-56); Creatinine, Serum 0.67 mg/dL (0.55-1.02); EST Glomerular Filtration Rate 107 mL/min (>60); Est Glom Filt Rate - Afr Amer 130 mL/min (>60); Estimated Creatinine Clearance 104.19 ml/min; Uric Acid 5.5 mg/dL (2.6-6.0)
[2024-03-05 10:36] LABS: Syphilis Antibodies Non-reactive
[2024-03-05] MEDS: Oxytocin 15 Units/NS 250ml 15 UNITS/250 ML IV.SOLN 2 UNITS IV (10:37)
[2024-03-05 10:40] LABS: Bedside Glucose 76 mg/dL (74-106)
[2024-03-05 10:40] LABS: Bedside Glucose 76 mg/dL (74-106)
[2024-03-05] MEDS: Lactated Ringers 1,000 ML 999 ML IV (12:13)
[2024-03-05] MEDS: fentaNYL-bupivacaine (epidural) 100 ML BAG EPIDURAL (12:55)
[2024-03-05 14:20] LABS: Bedside Glucose 64 mg/dL (74-106)
[2024-03-05] MEDS: LACTATED RINGERS 500 ML 999 ML IV (14:43)
--- NOTE | 2024-03-05 16:27 | OP.PCM_ITS ---
Assessment & Plan (1) (spontaneous vaginal delivery): COMMENT: LC PPROM 36.6 girl: Trang. Maternal Data Information KARLENE Calculator Estimated Delivery Date Method Current WG Current Estimate 03/27/24 LMP (Certain) 36w 6d Final KARLENE: 03/27/24 Final KARLENE Source: LMP Gestational age: 36.6 Vaginal Delivery Maternal Presentation Maternal Presentation: Spontaneous Rupture of Membranes Maternal Presentation: at 36.6 with spontaneous ROM at 0600, augmented labor after vancomycin dose for GBS unknown. quickly progressed to quickly dilated. Type of Induction: Pitocin Operative Information Date of Procedure: 03/05/24 Pre-Operative Diagnosis: see problem list Post-Operative Diagnosis: Surgery / Procedure Performed: Spontaneous Vaginal Delivery Type of Anesthesia: Epidural Estimated Blood Loss: 150 Time of Delivery: 16:08 Findings Description of Procedure: Patient began pushing and delivered the head in the BERHANE presentation. The head was delivered atraumatically. The anterior and posterior shoulders delivered without complication followed by the rest of the infant and the was placed on the maternal abdomen. Delayed cord clamping was employed for approximately 4 minutes. Cord was clamped and cut and given to pediatric team for evaluation for inconsistent cry but with good tone and color. gentle traction was applied to the cord and the placenta delivered spontaneously immediately following it was noted to be intact with three-vessel cord. The perineum and vagina were inspected and noted to have no laceration. EBL was 150cc. Patient and infant tolerated delivery well. Presentation: Vertex Amniotic Membrane Rupture Type: Spontaneous Time of Membrane Rupture: 0600 Amniotic Fluid Description: Clear Placental Delivery Description: Spontaneous Placenta Disposition: [facility] Cord Vessel Description: 3 Vessels Cord Entanglement: None A Gender: Female (1 minute): 8 (5 minute): 9 Delayed Cord Clamping: Yes Post Vaginal Delivery Medications Given After Delivery: IV Pitocin Episiotomy Description: None Laceration: None Complication Complications: None Procedures Urinary/Genital [id number]: [id number] Vaginal Delivery [facility]
--- NOTE | 2024-03-05 16:34 | PCM.DC ---
Discharge Instructions Diet Discharge Diet: No restrictions Activity Discharge Activity: May Not Drive and May Shower May resume sexual activity in: 6 weeks Weight Bearing Status: Full weight bearing Dressing / Incision Call your doctor if your incision/area has: Sudden Increased Bleeding, Increased Pain/ Swelling and Foul Smelling Discharge Call your doctor if you observe: Fever of 101 or Higher, Numbness or Tingling, Change in Color, Inability to urinate, Inability to have a bowel movement, Using more than 1 pad per hour, Shortness of breath, Dizziness, Fainting spells, Chest pain, Calf discomfort and Uncontrolled pain Follow Up Care Please Follow Up With: Alia Baez CNM When: 6 weeks , please call office to make an appointment. Congratulations on the of your baby! Test Results: Test results from this visit will be discussed in further detail at your follow-up appointment, if applicable. Discharge Plan Admission Admit Date/Time: 03/05/24 08:35 Attending Provider: Alia Baez Primary Care Provider: Care PhysicianOdette Primary Discharge Orders/Prescriptions Prescriptions: No Action PNV no.697-HN-ip0-wso-tam-hign 400 mcg-35 mg- 25 mg-5 mg tablet,chewable 1 tab PO DAILY sertraline [Zoloft] 25 mg tablet 25 mg PO DAILY Qty: 30 5RF (DME) FreeStyle Patrick 2 [place] Misc See Rx Instructions .Route Qty: 1 0RF Rx Instructions: As directed (DME) FreeStyle Patrick 2 Sensor Kit See Rx Instructions .Route Qty: 1 8RF Rx Instructions: As directed valacyclovir [Valtrex] 500 mg tablet 500 mg PO DAILY Qty: 30 0RF Referrals / Follow Up: Care Physician,Odette Primary [Primary Care Provider] -
[2024-03-05] MEDS: Oxytocin 15 Units/NS 250ml 15 UNITS/250 ML IV.SOLN 83 UNITS IV (16:52)
[2024-03-05 17:38] LABS: Bedside Glucose 54 mg/dL (74-106)
[2024-03-05 17:38] LABS: Bedside Glucose 76 mg/dL (74-106)
[2024-03-05 17:38] LABS: Bedside Glucose 67 mg/dL (74-106)
[2024-03-05 17:38] LABS: Bedside Glucose 77 mg/dL (74-106)
[2024-03-05] MEDS: Sertraline 50 MG Tablet 25 MG PO (22:32)
[2024-03-06] VITALS (11 sets, daily range): BP systolic 115–139; BP diastolic 67–86; PULSE 71–87; RESP 14–18; TEMP 36.5–37.3; O2SAT 97–99
[2024-03-06 05:25] LABS: Bedside Glucose 76 mg/dL (74-106)
[2024-03-06] MEDS: Naproxen 500 MG Tablet PO ×2 (07:41→22:07)
--- NOTE | 2024-03-06 09:28 | PN.OBGYN_ITS ---
Subjective Subjective Patient doing well without complaints. Tolerating PO. Ambulating and voiding without difficulty. Feeding well. Denies chest pain, shortness of breath, calf pain/swelling, fevers, chills, lightheadedness. Objective Data Objective Data Vital Signs: Vital Signs Temp Pulse Resp BP Pulse Ox O2 Del Method 98.1 F 81 18 131/82 H 99 Room Air 03/06/24 07:47 03/06/24 07:47 03/06/24 07:47 03/06/24 07:47 03/06/24 07:47 03/06/24 07:47 Oxygen Delivery Method Room Air Weight: 157 lb Body Mass Index (BMI) 30.7 Intake & Output: Intake and Output for Last 24 Hours 03/04/24 03/05/24 03/06/24 23:59 23:59 23:59 Intake Total 3914.70 / 3914.70 Output Total 1200 / 1200 Balance 2714.70 / 2714.70 Lab / Micro Data 03/05/24 09:34 03/05/24 09:34 Labs: Laboratory Results - last 24 hr 03/05/24 09:19: POC Glucose 76 03/05/24 09:34: WBC 7.9, RBC 4.28, Hgb 12.4, Hct 36.9 L, MCV 86.2, MCH 29.0, MCHC 33.6, RDW Std Deviation 41.0, RDW Coeff of [place] 13.2, Plt Count 230, MPV 11.3, Immature Gran % (Auto) 0.500, Neut % (Auto) 70.2 H, Lymph % (Auto) 22.0, [place] % (Auto) 6.1, Eos % (Auto) 0.8, Baso % (Auto) 0.4, Absolute Neuts (auto) 5.5, Absolute Lymphs (auto) 1.73, Nucleated RBC % 0, Creatinine 0.67, Estim Creat Clear Calc 104.19, Est GFR (MDRD) Af Amer 130, Est GFR (MDRD) Non-Af 107, Uric Acid 5.5, AST 21, ALT 20, Syphilis Total Ab Non-reactive, Blood Type A POSITIVE, Antibody Screen NEGATIVE 03/05/24 10:20: POC Glucose 76 03/05/24 13:59: POC Glucose 64 L 03/05/24 14:44: POC Glucose 77 03/05/24 16:03: POC Glucose 54 L 03/05/24 16:19: POC Glucose 67 L 03/05/24 16:51: POC Glucose 76 03/06/24 04:49: POC Glucose 76 Physical Exam Const alert and oriented x3 Eyes PERRL Neck full ROM Lymph Lymphatic: no lymphadenopathy noted Chest inspection of chest normal and inspection of breasts normal Resp normal respiratory effort and normal air movement Effort and Inspection: able to speak in complete sentences Cardio regular rate and regular rhythm GI normal to inspection, nondistended, normoactive bowel sounds Uterus Palpation: uterus fundus firm Extremity normal to inspection, full ROM, no calf tenderness and no pedal edema Skin no rashes or lesions noted Psych mental status grossly normal Assessment & Plan (1) (spontaneous vaginal delivery): COMMENT: LO PPROM 36.6 girl: Dahlia. PLAN: s/p PPD # 1 1. routine post delivery care 2. breast feeding- support given 3. rh positive 4. rubella immune 5. d/c home tomorrow
--- NOTE | 2024-03-06 14:15 | CASEMGMT ---
Social Work Assessment Labor and Delivery Unit Patient [address]: [address] [place] [address] Phone number: Date of Referral: 03/06/24 Time of Referral: 10:26 Referred By: Alia Baez Date of Intervention: 03/06/24? Time of Intervention: 14:15? Reason for Referral: Mental Health and family hx of drug abuse History obtained from: Medical records and mother of baby (AVA) Hilary Esqueda.? Household composition: AVA, son Av age 13, daughter Yenny, age 9 and baby daughter Trang. Patient's parent/guardian status: AVA is single and the FOB wasn?t identified, wasn?t involved at the time of delivery and isn?t expected to be involved at all now or in the future. Medical History: ?AVA has had 5 pregnancies and 3 births.? AVA had 1 spontaneous and 1 ectopic . AVA received care through [facility] [place] beginning at 7 weeks and 5 days. Visits were regular throughout the . Baby?s birthweight was 6lbs., 6oz. Apgars: 8 and 9. Educational Status: AVA denied any issues or concerns with reading or writing. AVA earned her High School Diploma. Financial Status: AVA reported her income is sufficient to meet the needs of her family at this time. 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 Supplies: AVA reported she has all the supplies she needs for baby at this time including but not limited to: Car Seat, bassinet, crib, diapers, bottles and clothing. Childcare/Caregiver(s):? After AVA returned to work, her aunt Ирина will likely be providing childcare for at least the first 6 months. Transportation:? 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 No transportation issues identified. Programs/Agencies Involved: JFS: Medicaid, previous Help Me Grow with AVA?s oldest son Av who has medical issues (recently had heart surgery). Previous CSB involvement with Av. ? Children Services/Legal Issues: Previous CSB involvement with Av. ? Behavioral Health Issues: ??Mental Health History: Anxiety, currently being treated with meds. AVA also has PTSD.? AVA was previously involved in counseling with Steve from roughly [id number]. AVA reported her anxiety is currently being managed at this time and denied any current concerns or needs in regards to her mental health. ???Substance Use History: Denied.? Family History: Yes.?? Drug Screens: None. ? Family/Social Stressors:? Medical issues with AVA?s son Av. Support Systems: Ample.? AVA identified her biggest support as her aunt Ирина who lives across the street from AVA.? ?? Depression/Shaken Baby/Safe Sleeping: electronics worker provided verbal and written education on PPD, Safe Sleeping and Shaken Baby. MOB verbalized an understanding. ??? ASSESSMENT:? MOB provided consent to social work visit. AVA?s aunt Ирина was also present at the time of the visit which MOB also consented to her being present. Upon arrival, AVA?s children and the and children of AVA?s aunt Ирина were all in the process of leaving.? AVA had been holding baby however handed baby to her aunt so she could use the restroom and Ирина held the baby for the remainder of the visit. AVA and Ирина both appeared to be attached and bonded to baby. Ирина was very comforting and soothing to the baby and was very attentive and AVA talked about how excited she was to have the baby. AVA stated at this time, she?s not interested in having any additional children and is going to be talking to her OBGYN in 6 weeks about control. Custom Seamstress for baby was identified as Dr. Laguna. No safety issues, concerns or needs identified at this time. AVA reported she has ample support to help her with herself and her children whenever need and described her support as ?strong?. Safe Plan of Care for related to substance use: N/A; not needed. ? PLAN:? Baby to be discharged home.? electronics worker also provided written information on depression, depression resources and Help Me Grow. ?No other services requested or indicated. Madison Rosado, SHEEP AND WHEAT FARMER, MOGUL OPERATOR
[2024-03-06] MEDS: Acetaminophen 500 MG Tablet 1000 MG PO ×2 (14:37→22:05)
[2024-03-06] MEDS: Sertraline 50 MG Tablet 25 MG PO (22:06)
[2024-03-07 01:45] VITALS: BP 126/84; PULSE 77; RESP 16; TEMP 37.3; O2SAT 99
--- NOTE | 2024-03-07 05:16 | CON.PCM.LA_ITS ---
Assessment & Plan Assessment/Plan (1) Care and examination of lactating mother: PLAN: Plan as listed below. HPI Consult Data Date of Consult: 03/07/24 HPI Narrative HPI Narrative: GAURAV ISLAS, is a 33 F who presents assessment, latching difficulty. History provided by the patient. [facility] Medical History (Updated 03/07/24 @ 05:22 by Chanel Lyon AMBULANCE MECHANIC, AMBULANCE MECHANIC-C) Care and examination of lactating mother Malignant hyperthermia susceptibility HPV (human papilloma virus) infection Stillborn, normal Anxiety Headache Home Medications ?Medication ?Instructions ?Recorded ?Last Taken ?Type PNV 153-FA 400 mcg-om3 35 mg-dha 1 tab PO DAILY 08/04/23 03/04/24 12:00 History 25 mg-epa 5 mg-fish oil chew tablet flash glucose scanning reader #1 ea 12/31/23 Unknown Rx (FreeStyle Patrick 2 [place]) flash glucose sensor (FreeStyle #1 ea 12/31/23 Unknown Rx Patrick 2 Sensor kit) sertraline 25 mg tablet (Zoloft) 25 mg PO DAILY #30 tabs 12/31/23 03/04/24 22:00 Rx valacyclovir 500 mg tablet 500 mg PO DAILY #30 tabs 03/03/24 03/04/24 22:00 Rx (Valtrex) Allergy/AdvReac Type Severity Reaction Status Date / Time Penicillins Allergy Unknown PT UNSURE Verified 03/05/24 07:56 OF REACTION Family History Son ADHD Tethered cord Scoliosis Autism Double outlet right ventricle Surgical History (Updated 03/05/24 @ 08:38 by Blanca Marcos) History of surgery History of gynecologic surgery [place] teeth extracted H/O dilation and curettage Social History adopted: No household members: significant other and children number of children: 2 current occupational status: employed 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 current occupational exposures/hazards: Yes (PPE is worn and prevented from some rooms when ) pets and animals: Yes (avoid litterbox) pets and animals: cat(s) and dog(s) history of recent travel: No sexually active: Yes Smoking Status: Never smoker alcohol intake: current alcohol intake frequency: a few times a month details: not while substance use type: does not use diet: other well-balanced diet: daily or most days caffeine: No eating out: 1-3 times/week during the past year weight has: remained stable what type of physical activity do you participate in: none richar/pentecostalism: None seatbelt use: always do you feel safe at home: Yes additional social history: Fianc?- Adrian ROS Integumentary Integumentary: Reports other Details: q2-3 hours, baby using shield to assist with latching, had difficulty latching last night and was very sleepy, baby has been getting BS and at this time are WNL Exam General alert Respiratory Respiratory: normal respiratory effort Skin normal color Feeding Assessment Feeding Assessment Feed Type: Breastmilk [place] Feeding Methods: Breast Breast-fed on which sides:: Both Position: Football Feeding Aids Currently Using: Nipple [place] Latch Score L - Latch Latch: Grasps breast, tongue down, lips flanged, rhymic sucking (2) A - Audible Swallowing Audible Swallowing: Spontaneous & intermittent <24 hrs, spontaneous & frequent >24 hrs (2) T - Type of Nipple Type of Nipple: Everted (after stimulation) (2) C - Comfort (Breast/Nipple) Comfort (Breast/Nipple): Filling/reddened/small blisters/bruises/mild/moderate discomfort (1) H - Hold (Positioning) Hold (Positioning): Minimal assist, teach/hold one side and mother does other (1) Total Score Total Score:: 8 Observation Feeding Observed:: Yes IBCLC Feeding Assessment Feeding Assessment Mother's feeding plans during 's hospitalization: Breastfeed Feeding Plan Feeding Plan: Plan to continue to feed q2-3 hours, offering both sides with each feed. Educated on shield use. Set up pump for patient if needed if baby becomes sleepy and having difficulty latching. Discussed plan of care with pediatric hospitalist and will give baby 10 ml donor / moms milk if having difficulty latching. RNs to assist with feeds as needed tonight and will see tomorrow. Interventions IBCLC/CLC Interventions: Nipple shield, Pumping and Schedule outpatient consult Education IBCLC/CLC Education: [id number], Feeding on demand, Risks of nipple shield use, Use of breast pump and Keep a feeding log Charges/Coding Visit Charges Inpatient E&M: 27682 Init Hosp L1
--- NOTE | 2024-03-07 07:20 | PN.OBGYN_ITS ---
Subjective Subjective Patient doing well without complaints. Tolerating PO. Ambulating and voiding without difficulty. Feeding well. Denies chest pain, shortness of breath, calf pain/swelling, fevers, chills, lightheadedness. Objective Data Objective Data Vital Signs: Vital Signs Temp Pulse Resp BP Pulse Ox O2 Del Method 99.1 F 77 16 126/84 H 99 Room Air 03/07/24 01:45 03/07/24 01:45 03/07/24 01:45 03/07/24 01:45 03/07/24 01:45 03/07/24 01:45 Oxygen Delivery Method Room Air Weight: 157 lb Body Mass Index (BMI) 30.7 Intake & Output: Intake and Output for Last 24 Hours 03/05/24 03/06/24 03/07/24 23:59 23:59 23:59 Intake Total 3914.70 / 3914.70 Output Total 1200 / 1200 Balance 2714.70 / 2714.70 - / 1 Lab / Micro Data Attestation: I reviewed the patient's lab results. 03/05/24 09:34 03/05/24 09:34 ROS Constitutional Constitutional: Reports systems reviewed and no addt'l complaints, except as documented; Denies anorexia or headache(s) Cardiovascular Cardiovascular: Reports systems reviewed and no addt'l complaints, except as documented; Denies dizziness, dyspnea, nausea or tachypnea Respiratory/Chest Respiratory/Chest: Reports systems reviewed and no addt'l complaints, except as documented; Denies cough, dyspnea, shortness of breath at rest or tachypnea Gastrointestinal Gastrointestinal: Reports systems reviewed and no addt'l complaints, except as documented; Denies abdominal pain, constipation or nausea Genitourinary Genitourinary: Reports systems reviewed and no addt'l complaints, except as documented; Denies burning urination, difficulty urinating, dysuria, urinary frequency or urinary incontinence Musculoskeletal Musculoskeletal: Reports systems reviewed and no addt'l complaints, except as documented Integumentary Integumentary: Reports systems reviewed and no addt'l complaints, except as documented Neurologic Neurologic: Reports systems reviewed and no addt'l complaints, except as documented; Denies abnormal speech, dizziness or headache(s) Psychiatric Psychiatric: Reports systems reviewed and no addt'l complaints, except as documented Endocrine Endocrinology: Reports systems reviewed and no addt'l complaints, except as documented Hematologic/Lymphatic Hematologic/Lymphatic: Reports systems reviewed and no addt'l complaints, except as documented Physical Exam Const alert, oriented x3 and no apparent distress Neck full ROM Resp normal respiratory effort, normal air movement and no retractions Effort and Inspection: able to speak in complete sentences and symmetric chest movement GI soft to palpation Bladder / Kidney Exam: bladder normal to palpation Uterus Palpation: uterus fundus Extremity normal to inspection and full ROM Psych mental status grossly normal, thought process normal and cooperative Assessment & Plan (1) Care and examination of lactating mother: (2) (spontaneous vaginal delivery): COMMENT: LC PPROM 36.6 girl: Trang. PLAN: s/p PPD # 2 1. routine post delivery care 2. breast feeding- support given 3. rh positive 4. rubella immune 5. Discharge home (3) premature rupture of membranes (PPROM) with onset of labor within 24 hours of rupture in second trimester, antepartum: COMMENT: ROM at 0600 8/10 with cervical change from office at 2cm/70% 36.6 weeks vanco for GBS unknown PCN allergic. plan augmentation with pitocin if unchanged in 2 hours from previous exam (4) Gestational diabetes: QUALIFIERS: Gestational diabetes mellitus control: diet-controlled Trimester: third trimester Qualified Code(s): O24.410 - Gestational diabetes mellitus in , diet controlled COMMENT: Good control for 2 hr pp but fastings elevated/always has cereal. reviewed diet. Growth US Q4w, testing weekly at 32 wk and daily kick counts (5) Emotional crisis as acute reaction to exceptional (gross) stress: COMMENT: Feeling more in control, no longer working. Preparing for son's surgery:02/11/24 open heart complete, did well. Home (6) Situational anxiety: COMMENT: Son will be having open heart surgery in next month. She will be unable to work, no income for that month. Her main support person(son's grandmother) recently diagnosed with pancreatic cancer. Declines meds. Enc counseling. Gave [facility] info. (7) Abnormal Pap smear of cervix: COMMENT: 2022 (8) H/O cone biopsy of cervix: COMMENT: 2022; CL US with MFM 09/16 (9) Prior with demise: COMMENT: 22wks girl Donna. Pt may call when near 22 wk for FHT checks. Weekly NST and daily kick cts at 32 wk. growth Q4wk (10) Hx of ectopic : COMMENT: methotrexate (11) History of herpes genitalis: COMMENT: Valtrex at 36 weeks (12) Family history of autism: COMMENT: Pt son (13) FH: congenital heart problem: COMMENT: Son-dbl outlet right ventricle/He will be having cardiac surgery again in December 2023. MFM consult- echo 22-24 weeks: normal growth Q4 weeks, testing at 32 weeks, (14) Supervision of high-risk : QUALIFIERS: Trimester: second trimester Qualified Code(s): O09.92 - Supervision of high risk , unspecified, second trimester COMMENT: PRR, , KARLENE 03/27/24, Demetri Barreto, (Donna 22wk demise) FOB Adrian not involved Support system is poor/FOB no longer involved and her main support person has pancreatic cancer (15) : QUALIFIERS: Weeks of gestation: 36 weeks Qualified Code(s): Z 3A.36 - 36 weeks gestation of COMMENT: nl anatomy, declines genetic & carrier testing, nl nuchal translucency Charges/Coding Multi Select Codes Urinary/Genital Urinary/Genital CPT Codes: No Charge
--- NOTE | 2024-03-07 07:26 | DS.PCM_ITS ---
Providers Date of Admission: 03/05/24 Date of Discharge: 03/07/24 Primary Care Physician: Odette Primary Care Phys Consultations 03/06/24 10:40 Consult: Furnace Repair Mechanic Routine Consulting Provider: Chanel Lyon NP Reason for Consult: EMERGENT Consult: No MD Notified: Yes Date Notified: 03/06/24 Time Notified: 10:40 Method of Notification: Verbal Reason For Visit: LABOR Diagnosis Discharge Diagnosis (1) Care and examination of lactating mother: Status: Acute Code(s): Z39.1 - Encounter for care and examination of lactating mother (2) (spontaneous vaginal delivery): Status: Acute Code(s): O80 - Encounter for full-term uncomplicated delivery Plan: s/p PPD # 2 1. routine post delivery care 2. breast feeding- support given 3. rh positive 4. rubella immune 5. Discharge home (3) premature rupture of membranes (PPROM) with onset of labor within 24 hours of rupture in second trimester, antepartum: Status: Acute Code(s): O42.012 - premature rupture of membranes, onset of labor within 24 hours of rupture, second trimester (4) Gestational diabetes: Status: Acute Code(s): O24.419 - Gestational diabetes mellitus in , unspecified control Qualifiers: Gestational diabetes mellitus control: diet-controlled Trimester: third trimester Qualified Code(s): O24.410 - Gestational diabetes mellitus in , diet controlled (5) Emotional crisis as acute reaction to exceptional (gross) stress: Status: Acute Code(s): F43.0 - Acute stress reaction (6) Situational anxiety: Status: Acute Code(s): F41.8 - Other specified anxiety disorders (7) Abnormal Pap smear of cervix: Status: Acute Code(s): R87.619 - Unspecified abnormal cytological findings in specimens from cervix uteri (8) H/O cone biopsy of cervix: Status: Acute Code(s): Z98.890 - Other specified postprocedural states (9) Prior with demise: Status: Acute Code(s): O09.299 - Supervision of with other poor reproductive or obstetric history, unspecified trimester (10) Hx of ectopic : Status: Acute Code(s): Z87.59 - Personal history of other complications of , childbirth and the puerperium (11) History of herpes genitalis: Status: Acute Code(s): Z86.19 - Personal history of other infectious and parasitic diseases (12) Family history of autism: Status: Acute Code(s): Z81.8 - Family history of other mental and behavioral disorders (13) FH: congenital heart problem: Status: Acute Code(s): Z82.79 - Family history of other congenital malformations, deformations and chromosomal abnormalities (14) Supervision of high-risk : Status: Acute Code(s): O09.90 - Supervision of high risk , unspecified, unspecified trimester Qualifiers: Trimester: second trimester Qualified Code(s): O09.92 - Supervision of high risk , unspecified, second trimester (15) : Status: Acute Code(s): Z34.90 - Encounter for supervision of normal , unspecified, unspecified trimester Qualifiers: Weeks of gestation: 36 weeks Qualified Code(s): Z3A.36 - 36 weeks gestation of Medications at Discharge Home Medications PNV 153-FA 400 mcg-om3 35 mg-dha 25 mg-epa 5 mg-fish oil chew tablet 1 tab PO DAILY 08/04/23 flash glucose scanning reader (FreeStyle Patrick 2 [place]) #1 ea 12/31/23 flash glucose sensor (FreeStyle Patrick 2 Sensor kit) #1 ea 12/31/23 sertraline 25 mg tablet (Zoloft) 25 mg PO DAILY #30 tabs 12/31/23 valacyclovir 500 mg tablet (Valtrex) 500 mg PO DAILY #30 tabs 03/03/24 Hospital Course Operations None Procedures None Summary of Care Provided Minutes Spent on Discharge: 30 Physical Exam Const alert, oriented x3 and no apparent distress Neck full ROM Resp normal respiratory effort, normal air movement and no retractions Effort and Inspection: able to speak in complete sentences and symmetric chest movement GI soft to palpation Inspection: incision intact Bladder / Kidney Exam: bladder normal to palpation Uterus Palpation: uterus fundus Extremity normal to inspection and full ROM Psych mental status grossly normal, thought process normal and cooperative Weight / BMI Weight Weight: 157 lb Body Mass Index (BMI) 30.7 ABG / Lab / Microbiology Data 03/05/24 09:34 03/05/24 09:34 D/C Instructions Discharge Diet: No restrictions May shower in (days): 0 May resume sexual activity in: 6 weeks Weight Bearing Status: Full weight bearing Call your doctor if your incision/area has: Sudden Increased Bleeding, Increased Pain/ Swelling and Foul Smelling Discharge Call your doctor if you observe: Fever of 101 or Higher, Numbness or Tingling, Change in Color, Inability to urinate, Inability to have a bowel movement, Using more than 1 pad per hour, Shortness of breath, Dizziness, Fainting spells, Chest pain, Calf discomfort and Uncontrolled pain Suture Line Care: Avoid Pulling/Pushing and Avoid Pinching/Bending Cleanse incision/area with: Soap & Water and Keep Dressing Clean & Dry Please Follow Up With: Alia Baez CNM When: 6 weeks , please call office to make an appointment. Congratulations on the of your baby! Meaningful Use Info Meaningful Use Meaningful Use Diagnoses (Choose all that apply): None applicable Ischemic Stroke Statin Dosing Therapy Reference: STATIN DOSE THERAPY REFERENCE: * Patients > 75 years receive moderate or high dose statin therapy. * Patients 75 years or YOUNGER should receive HIGH intensity statin dose unless contraindicated. You will be required to document reason for non-treatment if statin daily dose does not meet guidelines. HIGH DOSE STATIN THERAPY DAILY Atorvastatin > than or = to 40 mg Rosuvastatin > than or = to 20 mg Amlodipine + Atorvastatin > than or = to 2.5/40 mg Ezetimibe + Simvastatin 10/80 mg Simvastatin 80mg Discharge Plan Admission Admit Date/Time: 03/05/24 08:35 Attending Provider: Alia Baez Primary Care Provider: Care Physician,No Primary Consulting Providers: Chanel Lyon BOBBIN HANDLER Discharge Orders/Prescriptions Prescriptions: No Action PNV no.[id number] 400 mcg-35 mg- 25 mg-5 mg tablet,chewable 1 tab PO DAILY sertraline [Zoloft] 25 mg tablet 25 mg PO DAILY Qty: 30 5RF (DME) FreeStyle Patrick 2 [place] Misc See Rx Instructions .Route Qty: 1 0RF Rx Instructions: As directed (DME) FreeStyle Patrick 2 Sensor Kit See Rx Instructions .Route Qty: 1 8RF Rx Instructions: As directed valacyclovir [Valtrex] 500 mg tablet 500 mg PO DAILY Qty: 30 0RF Referrals / Follow Up: Care Physician,No Primary [Primary Care Provider] - Disposition Disposition (needs filled in before D/C Order can be placed): Home, Self Care Charges/Coding Multi Select Codes Urinary/Genital Urinary/Genital CPT Codes: No Charge
[2024-03-07 07:46] VITALS: BP 136/91; PULSE 77
[2024-03-07 07:52] VITALS: BP 136/91; PULSE 78; RESP 16; TEMP 36.8; O2SAT 98
[2024-03-07 08:36] VITALS: BP 136/91; PULSE 78; RESP 16; TEMP 36.8
== END 2024-03-07 09:40 | disposition home or self-care (01) | DRG 560 ==
LOC: WPOUT 08:40 → WP 08:42
PROVIDERS: Admitting Provider Registered Nurse; Referring Provider Registered Nurse; Visit Provider Registered Nurse
DX: O42.013 Preterm premature rupture of membranes, onset of labor within 24 hours of rupture, third trimester (principal); Z37.0 Single live birth; O98.32 Other infections with a predominantly sexual mode of transmission complicating childbirth; O24.420 Gestational diabetes mellitus in childbirth, diet controlled; F41.9 Anxiety disorder, unspecified; O99.824 Streptococcus B carrier state complicating childbirth; A60.00 Herpesviral infection of urogenital system, unspecified; Z3A.36 36 weeks gestation of pregnancy; O99.344 Other mental disorders complicating childbirth; Z79.899 Other long term (current) drug therapy
CPT/HCPCS: 59025; 59050; 82565; 82962; 84112; 84450; 84460; 84550; 85025; 86780; 86850; 86900; 86901; 87081; 99221; J7040; J7120; G0378

== ENCOUNTER → 2024-04-18 | Outpatient (CLI) | payer MEDICAID, SELFPAY ==
[2024-04-25 12:08] LABS: HPV APTIMA, High Risk Negative (Negative)
== END | disposition home or self-care (01) ==
PROVIDERS: Referring Provider Advanced Practice Midwife; Visit Provider Advanced Practice Midwife
DX: Z12.4 Encounter for screening for malignant neoplasm of cervix (principal)
CPT/HCPCS: 87624; 88175; G0145

== ENCOUNTER → 2025-04-25 | Outpatient (CLI) | payer MEDICAID, SELFPAY ==
[2025-05-02 08:09] LABS: HPV APTIMA, High Risk Negative (Negative)
== END | disposition home or self-care (01) ==
PROVIDERS: Visit Provider Obstetrics & Gynecology
DX: Z12.4 Encounter for screening for malignant neoplasm of cervix (principal)
CPT/HCPCS: 87624; 88175; G0145